=== PATIENT | female | born 1970 | race Two or more races ===

== ENCOUNTER 2018-02-21 11:44 | Emergency (ER) | payer MEDICAID ==
[~2018-02-21] VITALS: Ht 152.4 cm; Wt 107.0 kg
[~2018-02-21 11:44] MED LIST: GABA-330 PO; GLIP-192 PO; HUM7525 SQ; METF500T PO; NORE1TAB6 PO; SITA100T15 PO
[2018-02-21 12:00] VITALS: BP 141/93
[2018-02-21] MEDS ORDERED: SULF1TAB49 PO (12:36)
== END 2018-02-21 12:42 | disposition home or self-care (01) ==
LOC: ER 11:45
DX: L08.9 Local infection of the skin and subcutaneous tissue, unspecified (principal); M79.672 Pain in left foot; G89.29 Other chronic pain; E11.42 Type 2 diabetes mellitus with diabetic polyneuropathy; Z79.84 Long term (current) use of oral hypoglycemic drugs; Z79.4 Long term (current) use of insulin; Z79.899 Other long term (current) drug therapy
CPT/HCPCS: 99284

== ENCOUNTER 2018-03-02 09:00 | Outpatient (CLI) | payer MEDICAID ==
[~2018-03-02 09:00] MED LIST changes: +SULF1TAB49 PO
[2018-03-02] MEDS ORDERED: silver sulfadiazine cream 50gm TP ONE (10:00)
[2018-03-02 11:25] LABS: BASOPHILS # (AUTO) 0.1 X10'3 (0-0.2); BASOPHILS % (AUTO) 0.6 % (0-1); EOSINOPHILS # (AUTO) 0.5 X10'3 (0-0.9); EOSINOPHILS % (AUTO) 4.9 % (0-6); HEMATOCRIT 40.6 % (35.0-45.0); HEMOGLOBIN 13.6 g/dl (12.0-16.0); LYMPHOCYTES # (AUTO) 3.1 X10'3 (1.1-4.8); LYMPHOCYTES % (AUTO) 29.9 % (21-51); MEAN CORPUSCULAR HEMOGLOBIN 26.6 PG (27.0-31.0); MEAN CORPUSCULAR HGB CONC 33.5 % (33.0-36.5); MEAN CORPUSCULAR VOLUME 79.3 FL (78-98); MEAN PLATELET VOLUME 8.3 FL (7.4-10.4); MONOCYTES # (AUTO) 0.6 X10'3 (0-0.9); MONOCYTES % (AUTO) 5.5 % (2-12); NEUTROPHILS # (AUTO) 6.2 X10'3 (1.8-7.7); NEUTROPHILS % (AUTO) 59.1 % (42-75); PLATELET COUNT 322 X10'3 (140-440); RED BLOOD COUNT 5.12 X10'6 (4.20-5.60); RED CELL DISTRIBUTION WIDTH 14.8 % (11.5-14.5); WHITE BLOOD COUNT 10.4 X10'3 (4.5-11.0)
[2018-03-02 11:35] LABS: ALBUMIN 3.1 G/DL (3.4-5.0); HEMOGLOBIN A1C 11.6 % (4.5-6.2)
== END 2018-03-02 10:53 | disposition home or self-care (01) ==
LOC: WOUND CARE 09:00 → EDSTATUS 09:00 → WOUND CARE 10:53
PROVIDERS: ATTEND Surgery
DX: T25.212A Burn of second degree of left ankle, initial encounter (principal); E11.622 Type 2 diabetes mellitus with other skin ulcer; L97.321 Non-pressure chronic ulcer of left ankle limited to breakdown of skin; E11.42 Type 2 diabetes mellitus with diabetic polyneuropathy; Z79.4 Long term (current) use of insulin; Z79.84 Long term (current) use of oral hypoglycemic drugs; Z79.899 Other long term (current) drug therapy; X08.8XXA Exposure to other specified smoke, fire and flames, initial encounter; Y93.89 Activity, other specified; Y92.89 Other specified places as the place of occurrence of the external cause; Y99.8 Other external cause status
CPT/HCPCS: 36415; 36416; 82040; 82948; 83036; 85025; 85651; 99215; A6212; A6223

== ENCOUNTER 2018-03-10 09:36 | Day surgery (SDC) | payer MEDICAID ==
[~2018-03-10 09:36] MED LIST changes: -SULF1TAB49 PO
[2018-03-10] MEDS ORDERED: LIDOcaine 2% 5ml jelly ONE (10:04)
== END 2018-03-10 12:30 | disposition home or self-care (01) ==
LOC: WOUND CARE 09:36
PROVIDERS: ATTEND Surgery
DX: T25.212D Burn of second degree of left ankle, subsequent encounter (principal); E11.622 Type 2 diabetes mellitus with other skin ulcer; L97.321 Non-pressure chronic ulcer of left ankle limited to breakdown of skin; E11.42 Type 2 diabetes mellitus with diabetic polyneuropathy; Z79.4 Long term (current) use of insulin; Z79.84 Long term (current) use of oral hypoglycemic drugs; Z79.899 Other long term (current) drug therapy; X08.8XXD Exposure to other specified smoke, fire and flames, subsequent encounter
CPT/HCPCS: 36416; 82948; 93922; 93970; 97597; A6021; A6206; A6441

== ENCOUNTER 2018-03-15 09:25 | Day surgery (SDC) | payer MEDICAID ==
[2018-03-15] MEDS ORDERED: LIDOcaine 2% 5ml jelly ONE (09:51)
== END 2018-03-15 10:34 | disposition home or self-care (01) ==
LOC: WOUND CARE 09:25
PROVIDERS: ATTEND Surgery
DX: T25.212D Burn of second degree of left ankle, subsequent encounter (principal); E11.622 Type 2 diabetes mellitus with other skin ulcer; L97.321 Non-pressure chronic ulcer of left ankle limited to breakdown of skin; E11.42 Type 2 diabetes mellitus with diabetic polyneuropathy; E11.65 Type 2 diabetes mellitus with hyperglycemia; Z79.4 Long term (current) use of insulin; Z79.84 Long term (current) use of oral hypoglycemic drugs; Z79.899 Other long term (current) drug therapy; X08.8XXD Exposure to other specified smoke, fire and flames, subsequent encounter
CPT/HCPCS: 36416; 82948; 97597; A6021; A6206; A6212

== ENCOUNTER 2018-03-22 08:59 | Day surgery (SDC) | payer MEDICAID ==
[2018-03-22] MEDS ORDERED: LIDOcaine 2% 5ml jelly ONE (09:10)
[2018-04-11] MEDS ORDERED: CLIN45GE TOP (10:45)
[2018-04-11] MEDS ORDERED: DOXY100C2 PO (10:45)
== END 2018-03-22 09:49 | disposition home or self-care (01) ==
LOC: WOUND CARE 08:59
PROVIDERS: ATTEND Surgery
DX: T25.212D Burn of second degree of left ankle, subsequent encounter (principal); T31.0 Burns involving less than 10% of body surface; E11.622 Type 2 diabetes mellitus with other skin ulcer; L97.321 Non-pressure chronic ulcer of left ankle limited to breakdown of skin; E11.42 Type 2 diabetes mellitus with diabetic polyneuropathy; E11.65 Type 2 diabetes mellitus with hyperglycemia; Z79.4 Long term (current) use of insulin; Z79.84 Long term (current) use of oral hypoglycemic drugs; Z79.899 Other long term (current) drug therapy; X08.8XXD Exposure to other specified smoke, fire and flames, subsequent encounter
CPT/HCPCS: 97597; A6021; A6206

== ENCOUNTER 2018-03-29 09:27 | Day surgery (SDC) | payer MEDICAID ==
[2018-03-29] MEDS ORDERED: LIDOcaine 2% 5ml jelly ONE (09:37)
== END 2018-03-29 10:33 | disposition home or self-care (01) ==
LOC: WOUND CARE 09:27
PROVIDERS: ATTEND Surgery
DX: T25.212D Burn of second degree of left ankle, subsequent encounter (principal); E11.622 Type 2 diabetes mellitus with other skin ulcer; L97.321 Non-pressure chronic ulcer of left ankle limited to breakdown of skin; E11.42 Type 2 diabetes mellitus with diabetic polyneuropathy; E11.65 Type 2 diabetes mellitus with hyperglycemia; Z79.4 Long term (current) use of insulin; Z79.84 Long term (current) use of oral hypoglycemic drugs; Z79.899 Other long term (current) drug therapy; X08.8XXD Exposure to other specified smoke, fire and flames, subsequent encounter
CPT/HCPCS: 36416; 82948; 97597; A6021; A6206; A6441

== ENCOUNTER 2018-04-01 11:40 | Emergency (ER) | payer MEDICAID ==
[~2018-04-01] VITALS: Ht 152.4 cm; Wt 109.6 kg
[2018-04-01 12:13] VITALS: BP 132/95
== END 2018-04-01 13:03 | disposition home or self-care (01) ==
LOC: ER 11:40
DX: J06.9 Acute upper respiratory infection, unspecified (principal); H61.23 Impacted cerumen, bilateral; H92.02 Otalgia, left ear; E11.42 Type 2 diabetes mellitus with diabetic polyneuropathy; G89.29 Other chronic pain; Z79.84 Long term (current) use of oral hypoglycemic drugs; Z79.4 Long term (current) use of insulin; Z79.899 Other long term (current) drug therapy
CPT/HCPCS: 99281

== ENCOUNTER 2018-04-08 09:22 | Outpatient (CLI) | payer MEDICAID ==
[2018-04-08] MEDS ORDERED: SULF1TAB49 PO (12:42)
[2018-04-11] MEDS ORDERED: DOXY100C2 PO (10:45)
[2018-04-11] MEDS ORDERED: CLIN45GE TOP (10:45)
== END 2018-04-08 09:51 | disposition home or self-care (01) ==
LOC: WOUND CARE 09:22 → EDSTATUS 09:30 → WOUND CARE 09:51
PROVIDERS: ATTEND Surgery
DX: E11.622 Type 2 diabetes mellitus with other skin ulcer (principal); L97.321 Non-pressure chronic ulcer of left ankle limited to breakdown of skin; E11.42 Type 2 diabetes mellitus with diabetic polyneuropathy; E11.65 Type 2 diabetes mellitus with hyperglycemia; Z79.4 Long term (current) use of insulin; Z79.84 Long term (current) use of oral hypoglycemic drugs; Z79.899 Other long term (current) drug therapy
CPT/HCPCS: 36416; 82948; 99211; A6021; A6206; A6212

== ENCOUNTER 2018-04-15 09:19 | Day surgery (SDC) | payer MEDICAID ==
[~2018-04-15 09:19] MED LIST changes: +CLIN45GE TOP; +DOXY100C2 PO; +SULF1TAB49 PO
[2018-04-15] MEDS ORDERED: LIDOcaine 2% 5ml jelly ONE (09:51)
== END 2018-04-15 10:55 | disposition home or self-care (01) ==
LOC: WOUND CARE 09:19
PROVIDERS: ATTEND Surgery
DX: E11.622 Type 2 diabetes mellitus with other skin ulcer (principal); L97.321 Non-pressure chronic ulcer of left ankle limited to breakdown of skin; I83.023 Varicose veins of left lower extremity with ulcer of ankle; T25.212D Burn of second degree of left ankle, subsequent encounter; E11.42 Type 2 diabetes mellitus with diabetic polyneuropathy; E11.65 Type 2 diabetes mellitus with hyperglycemia; I10 Essential (primary) hypertension; L73.2 Hidradenitis suppurativa; Z79.4 Long term (current) use of insulin; Z79.84 Long term (current) use of oral hypoglycemic drugs; Z79.899 Other long term (current) drug therapy; X08.8XXD Exposure to other specified smoke, fire and flames, subsequent encounter
CPT/HCPCS: 15271; 36416; 82948; A6209; A6222; A6446; Q4131; A6250

== ENCOUNTER 2018-04-22 09:21 | Day surgery (SDC) | payer MEDICAID ==
[~2018-04-22 09:21] MED LIST changes: -SULF1TAB49 PO
[2018-04-22] MEDS ORDERED: LIDOcaine 2% 5ml jelly ONE (09:55)
[2018-04-22] MEDS ORDERED: hydrocortisone 1% cream 28gm TP ONE (11:04)
== END 2018-04-22 11:07 | disposition home or self-care (01) ==
LOC: WOUND CARE 09:21
PROVIDERS: ATTEND Surgery
DX: E11.622 Type 2 diabetes mellitus with other skin ulcer (principal); L97.321 Non-pressure chronic ulcer of left ankle limited to breakdown of skin; I83.023 Varicose veins of left lower extremity with ulcer of ankle; T25.212D Burn of second degree of left ankle, subsequent encounter; E11.42 Type 2 diabetes mellitus with diabetic polyneuropathy; E11.65 Type 2 diabetes mellitus with hyperglycemia; I10 Essential (primary) hypertension; L73.2 Hidradenitis suppurativa; Z79.4 Long term (current) use of insulin; Z79.84 Long term (current) use of oral hypoglycemic drugs; Z79.899 Other long term (current) drug therapy; X08.8XXD Exposure to other specified smoke, fire and flames, subsequent encounter
CPT/HCPCS: 36416; 82948; 97597; A6021; A6206; A6441

== ENCOUNTER 2018-05-11 09:01 | Day surgery (SDC) | payer MEDICAID ==
[~2018-05-11 09:01] MED LIST changes: -DOXY100C2 PO
[2018-05-11] MEDS: LIDOcaine 2% 5ml jelly ONE (10:42)
== END 2018-05-11 11:34 | disposition home or self-care (01) ==
LOC: WOUND CARE 09:01
PROVIDERS: ATTEND Surgery
DX: E11.622 Type 2 diabetes mellitus with other skin ulcer (principal); L97.321 Non-pressure chronic ulcer of left ankle limited to breakdown of skin; I83.023 Varicose veins of left lower extremity with ulcer of ankle; T25.212D Burn of second degree of left ankle, subsequent encounter; E11.42 Type 2 diabetes mellitus with diabetic polyneuropathy; E11.65 Type 2 diabetes mellitus with hyperglycemia; I10 Essential (primary) hypertension; L73.2 Hidradenitis suppurativa; Z79.4 Long term (current) use of insulin; Z79.84 Long term (current) use of oral hypoglycemic drugs; Z79.899 Other long term (current) drug therapy; X08.8XXD Exposure to other specified smoke, fire and flames, subsequent encounter
CPT/HCPCS: 11042; 36416; 82948; A6021; A6206; A6441

== ENCOUNTER 2018-05-20 09:20 | Outpatient (CLI) | payer MEDICAID ==
[2018-05-20] MEDS ORDERED: COLL30OI TP (15:22)
== END 2018-05-20 12:30 | disposition home or self-care (01) ==
LOC: WOUND CARE 09:20 → EDSTATUS 09:30 → WOUND CARE 12:30
PROVIDERS: ATTEND Surgery
DX: E11.622 Type 2 diabetes mellitus with other skin ulcer (principal); L97.321 Non-pressure chronic ulcer of left ankle limited to breakdown of skin; I83.023 Varicose veins of left lower extremity with ulcer of ankle; T25.212D Burn of second degree of left ankle, subsequent encounter; E11.42 Type 2 diabetes mellitus with diabetic polyneuropathy; E11.65 Type 2 diabetes mellitus with hyperglycemia; I10 Essential (primary) hypertension; L73.2 Hidradenitis suppurativa; Z79.4 Long term (current) use of insulin; Z79.84 Long term (current) use of oral hypoglycemic drugs; Z79.899 Other long term (current) drug therapy; X08.8XXD Exposure to other specified smoke, fire and flames, subsequent encounter
CPT/HCPCS: 36416; 82948; 99215; A6212; A6222; A6446

== ENCOUNTER 2018-10-05 20:11 | Emergency (ER) | payer MEDICAID ==
[~2018-10-05] VITALS: Ht 152.4 cm; Wt 109.0 kg
[~2018-10-05 20:11] MED LIST changes: +COLL30OI TP
[2018-10-05 20:23] VITALS: BP 189/98
[2018-10-05] MEDS ORDERED: LANTUS SQ (22:21)
[2018-10-05] MEDS ORDERED: SYRI-641 SQ (22:21)
== END 2018-10-05 22:36 | disposition home or self-care (01) ==
LOC: ER 20:12
DX: T38.3X5A Adverse effect of insulin and oral hypoglycemic [antidiabetic] drugs, initial encounter (principal); I10 Essential (primary) hypertension; E11.42 Type 2 diabetes mellitus with diabetic polyneuropathy; G89.29 Other chronic pain; Z86.14 Personal history of Methicillin resistant Staphylococcus aureus infection; Z79.2 Long term (current) use of antibiotics; Z79.4 Long term (current) use of insulin; Z79.899 Other long term (current) drug therapy; Y92.89 Other specified places as the place of occurrence of the external cause
CPT/HCPCS: 82948; 99283

== ENCOUNTER 2018-11-19 18:18 | Emergency (ER) | payer MEDICAID ==
[~2018-11-19] VITALS: Ht 152.4 cm; Wt 101.0 kg
[~2018-11-19 18:18] MED LIST changes: +SYRI-641 SQ
[2018-11-19 18:21] VITALS: BP 149/92
== END 2018-11-19 20:09 | disposition home or self-care (01) ==
LOC: ER 18:18
DX: R21 Rash and other nonspecific skin eruption (principal); L29.9 Pruritus, unspecified; E66.9 Obesity, unspecified; I10 Essential (primary) hypertension; E11.40 Type 2 diabetes mellitus with diabetic neuropathy, unspecified; G89.29 Other chronic pain; Z79.4 Long term (current) use of insulin; Z88.4 Allergy status to anesthetic agent; Z79.899 Other long term (current) drug therapy
CPT/HCPCS: 99281

== ENCOUNTER 2018-12-31 10:14 | Emergency (ER) | payer MEDICAID ==
[~2018-12-31] VITALS: Ht 157.5 cm; Wt 122.0 kg
[2018-12-31] MEDS ORDERED: CEPH-572 PO (10:35)
[2018-12-31] MEDS ORDERED: TRIA15CR61 TP (11:00)
[2018-12-31 11:07] VITALS: BP 177/107
== END 2018-12-31 11:09 | disposition home or self-care (01) ==
LOC: ER 10:15
DX: L08.9 Local infection of the skin and subcutaneous tissue, unspecified (principal); L40.8 Other psoriasis; I87.2 Venous insufficiency (chronic) (peripheral); R60.0 Localized edema; G89.29 Other chronic pain; I10 Essential (primary) hypertension; E11.42 Type 2 diabetes mellitus with diabetic polyneuropathy; Z86.14 Personal history of Methicillin resistant Staphylococcus aureus infection; Z79.4 Long term (current) use of insulin; Z79.899 Other long term (current) drug therapy; Z79.84 Long term (current) use of oral hypoglycemic drugs
CPT/HCPCS: 87070; 87077; 87186; 99283

== ENCOUNTER 2019-05-28 21:02 | Emergency (ER) | payer MEDICAID ==
[~2019-05-28] VITALS: Ht 152.4 cm; Wt 106.9 kg
[~2019-05-28 21:02] MED LIST changes: +NORE-126 PO; -NORE1TAB6 PO
[2019-05-28] MEDS ORDERED: GABA-534 PO (21:48)
[2019-05-28 21:53] VITALS: BP 163/87
--- NOTE | 2019-05-28 22:09 | NUR ---
[facility] NEED [facility] THEN HOME T[facility]. PT REPORTS SHE HAS A TRANSPORT SERVICE, [facility] , THAT WILL TAKE HER BOTH PLACES. WHEN I CALLED THEY REPORTED SHE DOES NOT HAVE COVERAGE FOR AN ER DC TRANSPORT. [facility] CALLED AND REQUESTED THAT PT BE TAKEN BOTH PLACES. I UPDATED PT THAT THIS IS NOT A USUAL COURT[employer] CAB RIDE AND TO PLEASE CONSIDER HOW SHE WILL BE TRANSPORTED IN FUTURE ER VISITS. PT VERY GRATEFUL FOR THE RIDE.
== END 2019-05-28 22:28 | disposition home or self-care (01) ==
LOC: ER 21:03
DX: G62.9 Polyneuropathy, unspecified (principal); I10 Essential (primary) hypertension; E11.9 Type 2 diabetes mellitus without complications; G89.29 Other chronic pain; F41.9 Anxiety disorder, unspecified; Z76.0 Encounter for issue of repeat prescription; Z86.14 Personal history of Methicillin resistant Staphylococcus aureus infection; Z79.84 Long term (current) use of oral hypoglycemic drugs; Z79.4 Long term (current) use of insulin; Z79.899 Other long term (current) drug therapy
CPT/HCPCS: 99283

== ENCOUNTER 2019-07-05 07:57 | Emergency (ER) | payer MEDICAID ==
[~2019-07-05] VITALS: Ht 152.4 cm; Wt 118.2 kg
[~2019-07-05 07:57] MED LIST changes: +GABA-534 PO
[2019-07-05] MEDS ORDERED: HYDROcodone/acetaminophen 5mg/325mg tablet PO ONE (08:10)
[2019-07-05] MEDS ORDERED: furosemide 10 MG/1 ML 10ml inj IV ONE (08:10)
[2019-07-05] MEDS ORDERED: piperacillin/tazo 3.375gm/50ml 50 ML IV ONE (08:10)
[2019-07-05 08:44] LABS: BASOPHILS # (AUTO) 0.1 X10'3 (0-0.2); EOSINOPHILS # (AUTO) 0.6 X10'3 (0-0.9); EOSINOPHILS % (AUTO) 6.2 % (0-6); HEMATOCRIT 40.9 % (35.0-45.0); HEMOGLOBIN 13.6 g/dl (12.0-16.0); LYMPHOCYTES # (AUTO) 2.7 X10'3 (1.1-4.8); LYMPHOCYTES % (AUTO) 29.8 % (21-51); MEAN CORPUSCULAR HGB CONC 33.2 g/dL (33.0-36.5); MEAN CORPUSCULAR VOLUME 81.5 FL (78-98); MEAN PLATELET VOLUME 7.9 FL (7.4-10.4); MONOCYTES # (AUTO) 0.7 X10'3 (0-0.9); MONOCYTES % (AUTO) 7.5 % (2-12); NEUTROPHILS # (AUTO) 5.1 X10'3 (1.8-7.7); NEUTROPHILS % (AUTO) 55.5 % (42-75); PLATELET COUNT 353 X10'3 (140-440); RED BLOOD COUNT 5.02 X10'6 (4.20-5.60); RED CELL DISTRIBUTION WIDTH 14.8 % (11.5-14.5); WHITE BLOOD COUNT 9.1 X10'3 (4.5-11.0)
[2019-07-05 09:03] VITALS: BP 154/96
[2019-07-05 09:14] LABS: ALANINE AMINOTRANSFERASE 20 U/L (12-78); ALBUMIN 3.2 G/DL (3.4-5.0); ALBUMIN/GLOBULIN RATIO 0.7 (1.1-1.5); ALKALINE PHOSPHATASE 132 IU/L (46-116); ANION GAP 8 (8-16); ASPARTATE AMINO TRANSFERASE 10 U/L (10-37); BILIRUBIN,TOTAL 0.3 MG/DL (0.1-1.0); BLOOD UREA NITROGEN 14 MG/DL (7-18); BUN/CREATININE RATIO 19.4 (6.6-38.0); CALCIUM 8.7 MG/DL (8.5-10.1); CHLORIDE 103 MMOL/L (99-107); CREATININE 0.72 MG/DL (0.40-0.90); GLUCOSE 212 MG/DL (70-104); POTASSIUM 3.7 MMOL/L (3.5-5.1); SODIUM 139 MMOL/L (135-145); TOTAL CARBON DIOXIDE 27.7 MMOL/L (24-32); TOTAL PROTEIN 7.7 G/DL (6.4-8.2); eGFR 86 ML/MIN
[2019-07-05] MEDS ORDERED: DOXY100C43 PO (09:19)
[2019-07-05] MEDS ORDERED: CEPH250T PO (09:19)
== END 2019-07-05 11:01 | disposition home or self-care (01) ==
LOC: ER 07:57
DX: L03.116 Cellulitis of left lower limb (principal); E11.65 Type 2 diabetes mellitus with hyperglycemia; I10 Essential (primary) hypertension; G89.29 Other chronic pain; E11.42 Type 2 diabetes mellitus with diabetic polyneuropathy; Z86.14 Personal history of Methicillin resistant Staphylococcus aureus infection; Z88.4 Allergy status to anesthetic agent; Z79.899 Other long term (current) drug therapy; Z79.4 Long term (current) use of insulin
CPT/HCPCS: 36415; 80053; 82948; 83605; 84145; 85025; 85610; 87040; 93005; 96365; 96366; 96375; 99284; J1940; J2543

== ENCOUNTER 2019-10-31 15:32 | Inpatient (IN) | payer MEDICAID ==
[~2019-10-31] VITALS: Ht 152.4 cm; Wt 118.6 kg
[2019-10-31 16:43] LABS: BASOPHILS # (AUTO) 0.2 X10'3 (0-0.2); BASOPHILS % (AUTO) 1.1 % (0-1); EOSINOPHILS # (AUTO) 0.7 X10'3 (0-0.9); EOSINOPHILS % (AUTO) 5.4 % (0-6); HEMATOCRIT 38.9 % (35.0-45.0); HEMOGLOBIN 13.1 g/dl (12.0-16.0); LYMPHOCYTES # (AUTO) 3.8 X10'3 (1.1-4.8); LYMPHOCYTES % (AUTO) 29.1 % (21-51); MEAN CORPUSCULAR HEMOGLOBIN 26.5 PG (27.0-31.0); MEAN CORPUSCULAR HGB CONC 33.6 g/dL (33.0-36.5); MEAN PLATELET VOLUME 7.8 FL (7.4-10.4); MONOCYTES # (AUTO) 0.7 X10'3 (0-0.9); NEUTROPHILS # (AUTO) 7.8 X10'3 (1.8-7.7); NEUTROPHILS % (AUTO) 59.4 % (42-75); PLATELET COUNT 408 X10'3 (140-440); RED BLOOD COUNT 4.92 X10'6 (4.20-5.60); WHITE BLOOD COUNT 13.2 X10'3 (4.5-11.0)
[2019-10-31 17:00] LABS: PARTIAL THROMBOPLASTIN TIME 27 SECONDS (22-32)
[2019-10-31 17:03] LABS: COLOR,URINE YELLOW (Yellow); GLUCOSE, URINE >=1000 mg/dl (Neg); KETONES,URINE TRACE mg/dl (Neg); LEUKOCYTE ESTERASE ,URINE SMALL (Neg); NITRITES, URINE NEGATIVE (Neg); OCCULT BLOOD,URINE NEGATIVE (Neg); PROTEIN,URINE NEGATIVE (Neg)
[2019-10-31 17:08] LABS: ALANINE AMINOTRANSFERASE 27 U/L (12-78); ALBUMIN 3.5 G/DL (3.4-5.0); ALBUMIN/GLOBULIN RATIO 0.8 (1.1-1.5); ALKALINE PHOSPHATASE 128 IU/L (46-116); ANION GAP 11 (8-16); ASPARTATE AMINO TRANSFERASE 12 U/L (10-37); BILIRUBIN,TOTAL 0.1 MG/DL (0.1-1.0); BLOOD UREA NITROGEN 19 MG/DL (7-18); CALCIUM 9.4 MG/DL (8.5-10.1); CHLORIDE 100 MMOL/L (99-107); CREATININE 0.73 MG/DL (0.40-0.90); GLUCOSE 177 MG/DL (70-104); SODIUM 136 MMOL/L (135-145); TOTAL CARBON DIOXIDE 25.2 MMOL/L (24-32); eGFR 85 ML/MIN
[2019-10-31 17:11] LABS: CLARITY,URINE SLIGHTLY CLOUDY (Clear); UA COLLECTION TYPE CLN CATCH MIDSTREAM
[2019-10-31 17:18] LABS: BACTERIA,URINE FEW /HPF (Neg); RBC,URINE NONE SEEN /HPF (0-2); SQUAMOUS EPITHELIAL CELL,UR MODERATE /LPF (FEW)
[2019-10-31 17:19] LABS: WBC CLUMPS,URINE FEW /HPF (NEGATIVE)
[2019-10-31] MEDS ORDERED: vancomycin/NS 1 GM ADD-VANTAGE 250 ML IV ONE (19:10)
[2019-10-31] MEDS ORDERED: ondansetron/PF 4mg/2ml inj IV PRN (19:50)
[2019-10-31] MEDS ORDERED: mag hydrox/Alum hydrox/simeth 30ml oral suspension PO PRN (19:50)
[2019-10-31] MEDS ORDERED: acetaminophen 325mg tablet PO PRN (19:50)
[2019-10-31] MEDS ORDERED: magnesium hydroxide 30ml (MOM) UD suspension PO PRN (19:50)
[2019-10-31] MEDS ORDERED: dextrose 50%-water 50ml dispensing syringe IV PRN ×2 (19:55)
[2019-10-31] MEDS ORDERED: dextrose ORAL solution 15 GM/59 ML bottle PO PRN ×2 (19:55)
[2019-10-31] MEDS ORDERED: MESSAGE TO PHARMACY PO ONE (19:55)
[2019-10-31] MEDS ORDERED: glucagon, human recombinant 1mg kit SUBCUT PRN (19:55)
[2019-10-31] MEDS ORDERED: INSU100C4 SQ (19:58)
[2019-10-31] MEDS ORDERED: LANTUS SQ (19:58)
[2019-10-31] MEDS ORDERED: diphenhydrAMINE 25mg capsule PO PRN (20:05)
[2019-10-31 20:08] LABS: HEMOGLOBIN A1C 11.3 % (4.5-6.2)
[2019-10-31] MEDS: heparin, porcine 5000 units/ml vial SQ SCH (20:31)
[2019-10-31] MEDS: insulin glargine (Lantus) pen - multi-dose SQ SCH (21:00)
[2019-10-31 21:15] VITALS: BP 116/58
[2019-10-31 21:30] VITALS: BP 116/58
[2019-10-31] MEDS: gabapentin 400mg capsule PO SCH (21:30)
[2019-10-31] MEDS ORDERED: TRIA15CR61 TP (21:37)
[2019-11-01] VITALS: BP 132/88
[2019-11-01 05:42] LABS: BASOPHILS # (AUTO) 0.1 X10'3 (0-0.2); BASOPHILS % (AUTO) 0.8 % (0-1); EOSINOPHILS # (AUTO) 0.6 X10'3 (0-0.9); HEMATOCRIT 35.6 % (35.0-45.0); LYMPHOCYTES # (AUTO) 3.5 X10'3 (1.1-4.8); LYMPHOCYTES % (AUTO) 34.3 % (21-51); MEAN CORPUSCULAR HEMOGLOBIN 27.1 PG (27.0-31.0); MEAN CORPUSCULAR HGB CONC 33.6 g/dL (33.0-36.5); MEAN CORPUSCULAR VOLUME 80.7 FL (78-98); MEAN PLATELET VOLUME 8.1 FL (7.4-10.4); MONOCYTES # (AUTO) 0.6 X10'3 (0-0.9); MONOCYTES % (AUTO) 6.3 % (2-12); NEUTROPHILS # (AUTO) 5.4 X10'3 (1.8-7.7); NEUTROPHILS % (AUTO) 52.6 % (42-75); PLATELET COUNT 331 X10'3 (140-440); RED BLOOD COUNT 4.42 X10'6 (4.20-5.60); RED CELL DISTRIBUTION WIDTH 15.4 % (11.5-14.5); WHITE BLOOD COUNT 10.3 X10'3 (4.5-11.0)
[2019-11-01 05:54] LABS: ALANINE AMINOTRANSFERASE 22 U/L (12-78); ALBUMIN 2.9 G/DL (3.4-5.0); ALBUMIN/GLOBULIN RATIO 0.7 (1.1-1.5); ALKALINE PHOSPHATASE 105 IU/L (46-116); ANION GAP 8 (8-16); ASPARTATE AMINO TRANSFERASE 16 U/L (10-37); BILIRUBIN,TOTAL 0.3 MG/DL (0.1-1.0); BLOOD UREA NITROGEN 16 MG/DL (7-18); BUN/CREATININE RATIO 23.5 (6.6-38.0); CALCIUM 8.9 MG/DL (8.5-10.1); CHLORIDE 103 MMOL/L (99-107); CREATININE 0.68 MG/DL (0.40-0.90); GLUCOSE 284 MG/DL (70-104); POTASSIUM 4.1 MMOL/L (3.5-5.1); SODIUM 137 MMOL/L (135-145); TOTAL CARBON DIOXIDE 25.6 MMOL/L (24-32); TOTAL PROTEIN 6.8 G/DL (6.4-8.2); eGFR > 90 ML/MIN
--- NOTE | 2019-11-01 06:38 | NUR ---
Problems reprioritized. Patient report given, questions answered & plan of care reviewed with [place]. Addendum: 11/01/19 at 0638 by Akshat Sofia RN Amended: Links added.
[2019-11-01 08:00] VITALS: BP 122/78
[2019-11-01] MEDS: gabapentin 400mg capsule PO SCH ×3 (08:24→20:59)
[2019-11-01] MEDS: triamcinolone acetonide 0.5% cream 15gm TP SCH ×3 (08:24→21:00)
[2019-11-01] MEDS: heparin, porcine 5000 units/ml vial SQ SCH ×2 (08:24→20:16)
[2019-11-01] MEDS: insulin Lispro (HumaLOG) vial - multi-dose SQ SCH ×4 (08:34→21:08)
[2019-11-01] MEDS ORDERED: magnesium Cl slow-release 64mg tablet PO PRN (09:25)
[2019-11-01] MEDS: K and/or MAG REPLACEMENT MC SCH ×2 (09:25→20:00)
[2019-11-01] MEDS ORDERED: potassium Cl 20 mEq SR tablet PO PRN ×2 (09:25)
[2019-11-01] MEDS ORDERED: potassium CL 10mEq/100ml bag 100 ML IV PRN (09:25)
[2019-11-01] MEDS ORDERED: magnesium 4gm in 100ml NS 100 ML IV PRN (09:25)
--- NOTE | 2019-11-01 09:52 | NUR ---
Patient in room NANCY 360. I have received report from Primitivo WARE and had the opportunity to ask questions and assume patient care.
[2019-11-01 11:00] VITALS: BP 112/65
[2019-11-01] MEDS: cefepime 1GM in D5W 50mL 50 ML IV SCH ×3 (12:18→23:31)
[2019-11-01] MEDS ORDERED: gadobutrol 10mmol/10ml inj. IV ONE (13:47)
--- NOTE | 2019-11-01 16:09 | NUR ---
1600 dose of Cefipime too soon from starting dose. Per phone call Pharmacy, non-admin 1600 dose.
--- NOTE | 2019-11-01 18:12 | NUR ---
Pt admit with cellulitis with hx T2DM, current A1c is 11.3. Pt seen at bedside. Pt reports she lives in an independent living facility where she has no kitchen access and is only able to eat the three meals provided each day which pt reports are highly processed and prepackaged foods. Pt reports her living facility does not do meal accommodations however recently the quality of meals have improved to be slightly more healthy for breakfast and dinner, however lunch remains highly processed. Pt states she is supposed to see her MD q three months however is unsure of how frequently she actually sees her MD. Pt states she checks her BG levels a couple of times a day with resulting numbers in the 70s, 90s, or even greater than 700. Pt states she takes her meds per rx which is Metformin, Lantus, and Humalog and reports having to take high doses of Humalog d/t high blood sugar levels. RD provided pt with written and verbal protein and DM education with referral to outpatient DM class. RD encouraged pt to increase her level of activity for better BG level management. Pt verbalizes understanding and states she is working with a social work faculty member in hopes of being able to find a better living situation where she will be able to have more appropriate meals to assist with DM management. Pt currently on a CHO controlled diet documented with 100% PO intake. Pt agrees to double protein for satiety, d/w dietary. Pt denies food allergies, difficulty chewing/swallowing, or constipation/diarrhea. LB 10/31. Pt provided with [facility] contact information. Will continue to follow. Addendum: 11/01/19 at [address] Amended: Links added.
--- NOTE | 2019-11-01 18:33 | NUR ---
Patient in room NANCY 360. I have received report from Radha RN and JEANIE Ruano and had the opportunity to ask questions and assume patient care.
--- NOTE | 2019-11-01 18:42 | NUR ---
Problems reprioritized. Patient report given, questions answered & plan of care reviewed with Jacinta WARE.
[2019-11-01 20:00] VITALS: BP 109/64
[2019-11-01] MEDS: lactobacillus rhamnosus 10,000 MMU CELLS/CAPSULE PO SCH (20:17)
[2019-11-01] MEDS: mineral oil/petrolatum, white cream 113gm jar TP SCH (20:26)
[2019-11-01] MEDS: insulin glargine (Lantus) pen - multi-dose SQ SCH (21:08)
[2019-11-02] VITALS: BP 126/87
[2019-11-02] MEDS ORDERED: VANCOMYCIN LEVEL IV ONE (03:30)
[2019-11-02 03:50] LABS: BASOPHILS # (AUTO) 0.1 X10'3 (0-0.2); BASOPHILS % (AUTO) 1.1 % (0-1); EOSINOPHILS # (AUTO) 0.7 X10'3 (0-0.9); EOSINOPHILS % (AUTO) 7.9 % (0-6); LYMPHOCYTES % (AUTO) 34.5 % (21-51); MEAN CORPUSCULAR HEMOGLOBIN 26.7 PG (27.0-31.0); MEAN CORPUSCULAR HGB CONC 33.3 g/dL (33.0-36.5); MEAN CORPUSCULAR VOLUME 80.2 FL (78-98); MEAN PLATELET VOLUME 7.7 FL (7.4-10.4); MONOCYTES # (AUTO) 0.5 X10'3 (0-0.9); MONOCYTES % (AUTO) 6.1 % (2-12); NEUTROPHILS # (AUTO) 4.4 X10'3 (1.8-7.7); NEUTROPHILS % (AUTO) 50.4 % (42-75); PLATELET COUNT 345 X10'3 (140-440); RED BLOOD COUNT 4.86 X10'6 (4.20-5.60); RED CELL DISTRIBUTION WIDTH 15.5 % (11.5-14.5); WHITE BLOOD COUNT 8.7 X10'3 (4.5-11.0)
[2019-11-02 04:01] LABS: ALANINE AMINOTRANSFERASE 22 U/L (12-78); ALBUMIN 3.1 G/DL (3.4-5.0); ALBUMIN/GLOBULIN RATIO 0.7 (1.1-1.5); ALKALINE PHOSPHATASE 115 IU/L (46-116); ANION GAP 7 (8-16); ASPARTATE AMINO TRANSFERASE 11 U/L (10-37); BILIRUBIN,TOTAL 0.3 MG/DL (0.1-1.0); BLOOD UREA NITROGEN 17 MG/DL (7-18); BUN/CREATININE RATIO 23.9 (6.6-38.0); CHLORIDE 103 MMOL/L (99-107); CREATININE 0.71 MG/DL (0.40-0.90); GLUCOSE 261 MG/DL (70-104); POTASSIUM 4.1 MMOL/L (3.5-5.1); SODIUM 139 MMOL/L (135-145); TOTAL CARBON DIOXIDE 28.7 MMOL/L (24-32); TOTAL PROTEIN 7.4 G/DL (6.4-8.2); eGFR 88 ML/MIN
[2019-11-02 04:03] LABS: MAGNESIUM 2.1 MG/DL (1.5-2.4); PHOSPHORUS 4.2 MG/DL (2.3-4.5); VANCOMYCIN,TROUGH 19.1 UG/ML (6.0-14.0)
--- NOTE | 2019-11-02 06:13 | NUR ---
Problems reprioritized. Patient report given, questions answered & plan of care reviewed with JEANIE Garcia and JEANIE Ruano.
--- NOTE | 2019-11-02 06:18 | NUR ---
Patient in room NANCY 360. I have received report from Jacinta WARE and had the opportunity to ask questions and assume patient care.
[2019-11-02] MEDS: triamcinolone acetonide 0.5% cream 15gm TP SCH (07:33)
[2019-11-02] MEDS: cefepime 1GM in D5W 50mL 50 ML IV SCH (07:33)
[2019-11-02] MEDS: gabapentin 400mg capsule PO SCH ×2 (07:34→12:55)
[2019-11-02] MEDS: mineral oil/petrolatum, white cream 113gm jar TP SCH (07:34)
[2019-11-02] MEDS: heparin, porcine 5000 units/ml vial SQ SCH (07:34)
[2019-11-02] MEDS: lactobacillus rhamnosus 10,000 MMU CELLS/CAPSULE PO SCH (07:34)
[2019-11-02] MEDS: insulin Lispro (HumaLOG) vial - multi-dose SQ SCH ×2 (07:58→12:55)
[2019-11-02 08:00] VITALS: BP 114/69
[2019-11-02] MEDS: K and/or MAG REPLACEMENT MC SCH (08:00)
[2019-11-02] MEDS ORDERED: LINE600T12 PO (10:25)
[2019-11-02] MEDS ORDERED: WOOL454C TP (10:25)
[2019-11-02] MEDS ORDERED: LACT1CAP26 PO (10:25)
[2019-11-02 11:00] VITALS: BP 112/68
--- NOTE | 2019-11-02 13:07 | NUR ---
Pt d/c'd per nursing. D/C instructions reviewed. Pt instructed to f/u with PCP . Home meds stored in Pharmacy returned to pt. PIV d/c'd cannula intact. All personal belongings home with pt. Pt home pending cab ride.
--- NOTE | 2019-11-02 18:51 | NUR ---
1325 Pt d/c'd home. Escorted to front lobby by PCT via w/c. Home via cab with all personal belongings.
== END 2019-11-02 13:40 | disposition home or self-care (01) | DRG 383 ==
LOC: ER 15:33 → ED HOLD 19:48 → SUR 3N 21:17
PROVIDERS: ADMIT Internal Medicine; ATTEND Family Medicine
PROC: BQ3FYZZ Magnetic Resonance Imaging (MRI) of Left Lower Leg using Other Contrast (ICD-10-PCS; principal; 2019-11-01)
DX: L03.116 Cellulitis of left lower limb (principal); E11.42 Type 2 diabetes mellitus with diabetic polyneuropathy; E11.65 Type 2 diabetes mellitus with hyperglycemia; I10 Essential (primary) hypertension; F41.9 Anxiety disorder, unspecified; G89.29 Other chronic pain; N39.0 Urinary tract infection, site not specified; Z79.899 Other long term (current) drug therapy; Z99.3 Dependence on wheelchair; Z88.4 Allergy status to anesthetic agent
CPT/HCPCS: 36415; 71045; 73723; 80053; 80202; 81001; 82948; 83036; 83605; 83735; 84100; 84145; 85025; 85610; 85730; 87040; 87081; 87088; 99285; A9585; G0378; J0692; J1644; J1815; J3370

== ENCOUNTER 2020-01-17 13:29 | Emergency (ER) | payer MEDICAID ==
[~2020-01-17] VITALS: Ht 152.4 cm; Wt 111.2 kg
[~2020-01-17 13:29] MED LIST changes: -CLIN45GE TOP; -COLL30OI TP; -GABA-534 PO; -GLIP-192 PO; -HUM7525 SQ; +INSU100C4 SQ; +LACT1CAP26 PO; +LANTUS SQ; -NORE-126 PO; -SITA100T15 PO; +TRIA15CR61 TP; +WOOL454C TP
[2020-01-17 13:38] VITALS: BP 159/84
[2020-01-17 15:30] LABS: BASOPHILS # (AUTO) 0.1 X10'3 (0-0.2); EOSINOPHILS # (AUTO) 0.8 X10'3 (0-0.9); EOSINOPHILS % (AUTO) 8.7 % (0-6); HEMATOCRIT 41.6 % (35.0-45.0); HEMOGLOBIN 13.6 g/dl (12.0-16.0); LYMPHOCYTES # (AUTO) 2.2 X10'3 (1.1-4.8); LYMPHOCYTES % (AUTO) 25.2 % (21-51); MEAN CORPUSCULAR HEMOGLOBIN 27.1 PG (27.0-31.0); MEAN CORPUSCULAR HGB CONC 32.8 g/dL (33.0-36.5); MEAN CORPUSCULAR VOLUME 82.6 FL (78-98); MONOCYTES # (AUTO) 0.5 X10'3 (0-0.9); MONOCYTES % (AUTO) 5.3 % (2-12); NEUTROPHILS # (AUTO) 5.2 X10'3 (1.8-7.7); NEUTROPHILS % (AUTO) 59.8 % (42-75); PLATELET COUNT 343 X10'3 (140-440); RED BLOOD COUNT 5.04 X10'6 (4.20-5.60); RED CELL DISTRIBUTION WIDTH 15.6 % (11.5-14.5); WHITE BLOOD COUNT 8.7 X10'3 (4.5-11.0)
--- NOTE | 2020-01-17 15:37 | NUR ---
RETURNED TELEPHONE EQUIPMENT APPRAISER AT BEDSIDE.
[2020-01-17 15:42] LABS: ALANINE AMINOTRANSFERASE 21 U/L (12-78); ALBUMIN 3.1 G/DL (3.4-5.0); ALBUMIN/GLOBULIN RATIO 0.7 (1.1-1.5); ALKALINE PHOSPHATASE 130 IU/L (46-116); ANION GAP 7 (8-16); ASPARTATE AMINO TRANSFERASE 14 U/L (10-37); BILIRUBIN,TOTAL 0.3 MG/DL (0.1-1.0); BLOOD UREA NITROGEN 17 MG/DL (7-18); BUN/CREATININE RATIO 18.9 (6.6-38.0); CALCIUM 9.1 MG/DL (8.5-10.1); CHLORIDE 97 MMOL/L (99-107); POTASSIUM 4.3 MMOL/L (3.5-5.1); SODIUM 132 MMOL/L (135-145); TOTAL CARBON DIOXIDE 27.8 MMOL/L (24-32); TOTAL PROTEIN 7.5 G/DL (6.4-8.2); eGFR 67 ML/MIN
[2020-01-17 15:44] LABS: GLUCOSE 467 MG/DL (70-104)
[2020-01-17] MEDS ORDERED: insulin regular, human 10 units/0.1 ml syringe SQ ONE (15:45)
[2020-01-17] MEDS ORDERED: insulin regular, human U-100 3ml vial - multi-dose SQ ONE (15:55)
[2020-01-17] MEDS ORDERED: FURO40TA4 PO (15:56)
[2020-01-17] MEDS ORDERED: POTA20TA19 PO (15:56)
[2020-01-17] MEDS ORDERED: DOXY100C43 PO (15:56)
== END 2020-01-17 16:37 | disposition home or self-care (01) ==
LOC: ER 13:29
DX: E11.621 Type 2 diabetes mellitus with foot ulcer (principal); L97.529 Non-pressure chronic ulcer of other part of left foot with unspecified severity; R60.9 Edema, unspecified; E11.65 Type 2 diabetes mellitus with hyperglycemia; E11.42 Type 2 diabetes mellitus with diabetic polyneuropathy; I10 Essential (primary) hypertension; F41.9 Anxiety disorder, unspecified; Z86.19 Personal history of other infectious and parasitic diseases; Z79.4 Long term (current) use of insulin; Z79.899 Other long term (current) drug therapy
CPT/HCPCS: 36415; 80053; 84145; 85025; 93971; 99284; J1815

== ENCOUNTER 2020-07-04 10:31 | Emergency (ER) | payer MEDICAID ==
[~2020-07-04] VITALS: Ht 152.4 cm; Wt 102.0 kg
[2020-07-04 10:32] VITALS: BP 158/87
[2020-07-04] MEDS ORDERED: CEPH250T PO (11:08)
== END 2020-07-04 11:46 | disposition home or self-care (01) ==
LOC: ER 10:31
DX: L97.929 Non-pressure chronic ulcer of unspecified part of left lower leg with unspecified severity (principal); L90.9 Atrophic disorder of skin, unspecified; E11.42 Type 2 diabetes mellitus with diabetic polyneuropathy; I10 Essential (primary) hypertension; G89.29 Other chronic pain; F41.9 Anxiety disorder, unspecified; Z86.14 Personal history of Methicillin resistant Staphylococcus aureus infection; Z88.1 Allergy status to other antibiotic agents; Z79.4 Long term (current) use of insulin; Z79.899 Other long term (current) drug therapy
CPT/HCPCS: 99284

== ENCOUNTER 2020-09-27 23:06 | Emergency (ER) | payer MEDICAID ==
[~2020-09-27] VITALS: Ht 147.3 cm; Wt 90.9 kg
[2020-09-27 23:18] VITALS: BP 162/87
[2020-09-28] MEDS ORDERED: diphenhydrAMINE 25mg capsule PO ONE
== END 2020-09-28 01:56 | disposition home or self-care (01) ==
LOC: ER 23:06
DX: J06.9 Acute upper respiratory infection, unspecified (principal); J34.89 Other specified disorders of nose and nasal sinuses; Z20.828 Contact with and (suspected) exposure to other viral communicable diseases; I10 Essential (primary) hypertension; E11.9 Type 2 diabetes mellitus without complications; G89.29 Other chronic pain; F41.9 Anxiety disorder, unspecified; Z86.14 Personal history of Methicillin resistant Staphylococcus aureus infection; Z79.4 Long term (current) use of insulin; Z79.899 Other long term (current) drug therapy
CPT/HCPCS: 36415; 87081; 87880; 99283; Q0163

== ENCOUNTER 2021-12-03 16:34 | Inpatient (IN) | payer MEDICAID ==
[~2021-12-03] VITALS: Ht 304.8 cm; Wt 104.5 kg
[2021-12-03] MEDS ORDERED: diphenhydrAMINE 50 mg/ml inj IV ONE (16:45)
[2021-12-03] MEDS ORDERED: Neutra Phos packet PO PRN ×2 (16:45→20:30)
[2021-12-03] MEDS ORDERED: sodium phosphate inj. 30 MMOL in dextrose 5%-water 250 ML IV PRN ×2 (16:45→20:30)
[2021-12-03] MEDS ORDERED: potassium Cl 40MEQ/1/2NS 520ml 520 ML IV PRN ×4 (16:45→20:30)
[2021-12-03] MEDS ORDERED: normal saline 1000ML IV soln IVB ONE ×2 (16:45)
[2021-12-03] MEDS ORDERED: insulin regular, human U-100 3ml vial - multi-dose IV PRN ×2 (16:45→20:30)
[2021-12-03] MEDS ORDERED: potassium Cl 20 mEq SR tablet PO PRN ×6 (16:45→20:30)
[2021-12-03] MEDS ORDERED: metoclopramide 5 mg/ml inj IV ONE (16:45)
[2021-12-03] MEDS ORDERED: sodium phosphate inj. 15 MMOL in dextrose 5%-water 250 ML IV PRN ×2 (16:45→20:30)
[2021-12-03 17:33] LABS: BASOPHILS % (AUTO) 0.4 % (0-1); EOSINOPHILS % (AUTO) 0 % (0-6); HEMATOCRIT 51.5 % (35.0-45.0); HEMOGLOBIN 16.2 g/dl (12.0-16.0); LYMPHOCYTES # (AUTO) 0.9 X10'3 (1.1-4.8); LYMPHOCYTES % (AUTO) 12.2 % (21-51); MEAN CORPUSCULAR HEMOGLOBIN 27.3 PG (27.0-31.0); MEAN CORPUSCULAR HGB CONC 31.5 g/dL (33.0-36.5); MEAN CORPUSCULAR VOLUME 86.8 FL (78-98); MEAN PLATELET VOLUME 8.8 FL (7.4-10.4); MONOCYTES # (AUTO) 0.6 X10'3 (0-0.9); NEUTROPHILS # (AUTO) 5.5 X10'3 (1.8-7.7); NEUTROPHILS % (AUTO) 78.4 % (42-75); PLATELET COUNT 251 X10'3 (140-440); RED BLOOD COUNT 5.93 X10'6 (4.20-5.60); RED CELL DISTRIBUTION WIDTH 15.4 % (11.5-14.5)
[2021-12-03] MEDS: normal saline 1000ml 1,000 ML IV SCH ×4 (17:39→23:34)
[2021-12-03 17:47] LABS: HCG SERUM QL NEGATIVE
[2021-12-03 18:12] LABS: ALANINE AMINOTRANSFERASE 28 U/L (12-78); ALBUMIN 3.6 G/DL (3.4-5.0); ALBUMIN/GLOBULIN RATIO 0.6 (1.1-1.5); ALKALINE PHOSPHATASE 146 IU/L (46-116); ANION GAP 26 (8-16); ASPARTATE AMINO TRANSFERASE 18 U/L (10-37); BILIRUBIN,TOTAL 0.4 MG/DL (0.1-1.0); BLOOD UREA NITROGEN 27 MG/DL (7-18); BUN/CREATININE RATIO 22.5 (6.6-38.0); CALCIUM 9.1 MG/DL (8.5-10.1); CHLORIDE 96 MMOL/L (99-107); LIPASE 82 U/L (73-393); MAGNESIUM 2.2 MG/DL (1.5-2.4); PHOSPHORUS 5.1 MG/DL (2.3-4.5); POTASSIUM 5.4 MMOL/L (3.5-5.1); SODIUM 129 MMOL/L (135-145); TOTAL PROTEIN 9.4 G/DL (6.4-8.2); eGFR 48 ML/MIN
[2021-12-03] MEDS: Insulin Reg/NS 100units/100mL 100 ML IV SCH (18:12)
[2021-12-03 18:15] LABS: GLUCOSE 532 MG/DL (70-104); TOTAL CARBON DIOXIDE 6.7 MMOL/L (24-32)
--- NOTE | 2021-12-03 19:15 | NUR ---
ABG delayed due to Nursing care
[2021-12-03 19:19] LABS: C-REACTIVE PROTEIN 4.81 MG/DL (0.0-0.5)
[2021-12-03 19:36] LABS: D-DIMER 0.76 MG/L FEU (0-0.50)
[2021-12-03 20:00] LABS: ABG BASE EXCESS -21.2 mmol/L (-2.0-2.0); ABG HCO3 4.6 mmol/L (22.0-26.0); ABG OXYGEN SATURATION 96.5 % (94-97); ABG PCO2 (T) 12.6 mmHg (32.0-45.0); ABG PO2 (T) 95.8 mmHg (75.0-100.0); ALLEN'S TEST POSITIVE; FCOHb 0.4 % (0.0-3.9); FMetHb 0.3 % (0.0-1.5); FO2Hb 95.8 % (94-97); PATIENT TEMPERATURE 36.3; TOTAL HEMOGLOBIN 15.1 G/dl (12.0-16.0)
[2021-12-03] MEDS: K and/or MAG REPLACEMENT MC SCH (20:00)
[2021-12-03 20:18] LABS: CLARITY,URINE CLEAR (Clear); COLOR,URINE YELLOW (Yellow); GLUCOSE, URINE >=1000 mg/dl (Neg); KETONES,URINE >=80 mg/dl (Neg); LEUKOCYTE ESTERASE ,URINE NEGATIVE (Neg); NITRITES, URINE NEGATIVE (Neg); OCCULT BLOOD,URINE MODERATE (Neg); PROTEIN,URINE 30 mg/dl (Neg); UROBILINOGEN,URINE 0.2 E.U/dL (0.2-1.0)
[2021-12-03] MEDS ORDERED: acetaminophen 325mg tablet PO PRN (20:20)
[2021-12-03] MEDS ORDERED: magnesium 2GM in 50ml NS 50 ML IV PRN (20:20)
[2021-12-03] MEDS ORDERED: HYDROcodone/acetaminophen 10/325mg tab PO PRN (20:20)
[2021-12-03] MEDS ORDERED: magnesium Cl slow-release 64mg tablet PO PRN (20:20)
[2021-12-03] MEDS ORDERED: ondansetron/PF 4mg/2ml inj IV PRN (20:20)
[2021-12-03] MEDS ORDERED: HYDROcodone/acetaminophen 5mg/325mg tablet PO PRN (20:20)
[2021-12-03] MEDS ORDERED: mag hydrox/Alum hydrox/simeth 30ml oral suspension PO PRN (20:20)
[2021-12-03] MEDS ORDERED: potassium CL 10mEq/100ml bag 100 ML IV PRN (20:20)
[2021-12-03] MEDS ORDERED: magnesium hydroxide 30ml (MOM) UD suspension PO PRN (20:20)
[2021-12-03] MEDS ORDERED: magnesium 4gm in 100ml NS 100 ML IV PRN (20:20)
[2021-12-03] MEDS ORDERED: sodium bicarbonate (8.4%) inj. 50 MEQ in dextrose 5% water 500ml 250 ML IV PRN (20:30)
[2021-12-03] MEDS ORDERED: Insulin Reg/NS 100units/100mL 100 ML IV SCH (20:30)
[2021-12-03] MEDS ORDERED: sodium bicarbonate (8.4%) inj. 100 MEQ in dextrose 5% water 500ml 500 ML IV PRN (20:30)
[2021-12-03] MEDS ORDERED: normal saline 1000ml 1,000 ML IV SCH (20:30)
[2021-12-03] MEDS ORDERED: potassium CL 20mEq in D5-1/2NS 1,000 ML IV PRN (20:30)
[2021-12-03 20:32] LABS: UA COLLECTION TYPE NON-SPECIFIED
[2021-12-03 20:43] LABS: WBC,URINE 0-4 /HPF (0-4)
[2021-12-03 20:44] LABS: BACTERIA,URINE FEW /HPF (Neg); HYALINE CASTS 0-3 /LPF (NEGATIVE); MUCUS STRANDS NONE SEEN /LPF (Neg); SQUAMOUS EPITHELIAL CELL,UR FEW /LPF (FEW)
[2021-12-03 23:30] LABS: ALBUMIN 2.8 G/DL (3.4-5.0); ANION GAP 14 (8-16); BLOOD UREA NITROGEN 22 MG/DL (7-18); CALCIUM 7.5 MG/DL (8.5-10.1); CHLORIDE 107 MMOL/L (99-107); CREATININE 0.88 MG/DL (0.40-0.90); GLUCOSE 229 MG/DL (70-104); POTASSIUM 4.2 MMOL/L (3.5-5.1); SODIUM 131 MMOL/L (135-145); eGFR 68 ML/MIN
[2021-12-03 23:37] LABS: TOTAL CARBON DIOXIDE 10.1 MMOL/L (24-32)
[2021-12-03] MEDS: potassium CL 20mEq in D5-1/2NS 1,000 ML IV PRN (23:41)
[2021-12-04] MEDS: normal saline 1000ml 1,000 ML IV SCH ×6 (00:45→20:45)
[2021-12-04 02:06] LABS: BASOPHILS % (AUTO) 0.4 % (0-1); EOSINOPHILS % (AUTO) 0 % (0-6); HEMATOCRIT 41.7 % (35.0-45.0); HEMOGLOBIN 13.5 g/dl (12.0-16.0); LYMPHOCYTES # (AUTO) 2.2 X10'3 (1.1-4.8); LYMPHOCYTES % (AUTO) 24.7 % (21-51); MEAN CORPUSCULAR HEMOGLOBIN 27.2 PG (27.0-31.0); MEAN CORPUSCULAR HGB CONC 32.4 g/dL (33.0-36.5); MONOCYTES # (AUTO) 0.8 X10'3 (0-0.9); MONOCYTES % (AUTO) 9.2 % (2-12); NEUTROPHILS # (AUTO) 5.8 X10'3 (1.8-7.7); NEUTROPHILS % (AUTO) 65.7 % (42-75); PLATELET COUNT 224 X10'3 (140-440); RED BLOOD COUNT 4.96 X10'6 (4.20-5.60); RED CELL DISTRIBUTION WIDTH 14.7 % (11.5-14.5); WHITE BLOOD COUNT 8.8 X10'3 (4.5-11.0)
[2021-12-04 02:20] LABS: ALANINE AMINOTRANSFERASE 20 U/L (12-78); ALBUMIN 2.7 G/DL (3.4-5.0); ALBUMIN/GLOBULIN RATIO 0.6 (1.1-1.5); ALKALINE PHOSPHATASE 103 IU/L (46-116); ANION GAP 17 (8-16); ASPARTATE AMINO TRANSFERASE 18 U/L (10-37); BILIRUBIN,TOTAL 0.2 MG/DL (0.1-1.0); BLOOD UREA NITROGEN 20 MG/DL (7-18); BUN/CREATININE RATIO 25.3 (6.6-38.0); CALCIUM 7.6 MG/DL (8.5-10.1); CHLORIDE 110 MMOL/L (99-107); CREATININE 0.79 MG/DL (0.40-0.90); GLUCOSE 170 MG/DL (70-104); MAGNESIUM 1.8 MG/DL (1.5-2.4); PHOSPHORUS 1.8 MG/DL (2.3-4.5); POTASSIUM 3.8 MMOL/L (3.5-5.1); SODIUM 138 MMOL/L (135-145); TOTAL PROTEIN 7.2 G/DL (6.4-8.2); eGFR 77 ML/MIN
[2021-12-04 02:24] LABS: TOTAL CARBON DIOXIDE 10.8 MMOL/L (24-32)
[2021-12-04] MEDS: hydrALAZINE 20mg/ml inj. IV SCH ×4 (02:35→20:11)
--- NOTE | 2021-12-04 06:30 | NUR ---
first contact with pt, found supine in bed. insulin gtt running, will check bs at 0645. pt in no distress, awaiting bed assignment.
[2021-12-04] MEDS: docusate sod 100mg capsule PO SCH ×2 (08:00→20:11)
[2021-12-04] MEDS: lisinopril 2.5mg tablet PO SCH (08:00)
[2021-12-04] MEDS ORDERED: K and/or MAG REPLACEMENT MC SCH (08:00)
[2021-12-04] MEDS: K and/or MAG REPLACEMENT MC SCH ×4 (08:00→20:00)
--- NOTE | 2021-12-04 08:15 | NUR ---
pt up to bsc independently, no incidents.
[2021-12-04] MEDS: enoxaparin 40mg/0.4ml syringe SUBCUT SCH (08:28)
[2021-12-04 09:21] LABS: ALANINE AMINOTRANSFERASE 22 U/L (12-78); ALBUMIN 2.7 G/DL (3.4-5.0); ALBUMIN/GLOBULIN RATIO 0.6 (1.1-1.5); ALKALINE PHOSPHATASE 100 IU/L (46-116); ANION GAP 16 (8-16); ASPARTATE AMINO TRANSFERASE 20 U/L (10-37); BILIRUBIN,TOTAL 0.2 MG/DL (0.1-1.0); BLOOD UREA NITROGEN 16 MG/DL (7-18); CALCIUM 7.7 MG/DL (8.5-10.1); CHLORIDE 107 MMOL/L (99-107); CREATININE 0.64 MG/DL (0.40-0.90); GLUCOSE 180 MG/DL (70-104); POTASSIUM 3.8 MMOL/L (3.5-5.1); SODIUM 135 MMOL/L (135-145); TOTAL PROTEIN 7.2 G/DL (6.4-8.2); eGFR > 90 ML/MIN
[2021-12-04 09:33] LABS: TOTAL CARBON DIOXIDE 11.7 MMOL/L (24-32)
--- NOTE | 2021-12-04 10:13 | NUR ---
paged hospitalist regarding insulin gtt orders.
--- NOTE | 2021-12-04 12:00 | NUR ---
re-started ns at 250jml/hr after bs 351.
--- NOTE | 2021-12-04 12:35 | NUR ---
received call from hospitalist regarding insulin gtt. will give pt lunch tray and follow insulin protocol. plan is to switch to subq insulin when bs reaches 200.
[2021-12-04 13:15] LABS: ALANINE AMINOTRANSFERASE 23 U/L (12-78); ALBUMIN 2.8 G/DL (3.4-5.0); ALBUMIN/GLOBULIN RATIO 0.5 (1.1-1.5); ALKALINE PHOSPHATASE 113 IU/L (46-116); ANION GAP 17 (8-16); ASPARTATE AMINO TRANSFERASE 22 U/L (10-37); BILIRUBIN,TOTAL 0.2 MG/DL (0.1-1.0); BLOOD UREA NITROGEN 15 MG/DL (7-18); CALCIUM 8.2 MG/DL (8.5-10.1); CHLORIDE 104 MMOL/L (99-107); CREATININE 0.75 MG/DL (0.40-0.90); GLUCOSE 251 MG/DL (70-104); POTASSIUM 3.5 MMOL/L (3.5-5.1); SODIUM 134 MMOL/L (135-145); TOTAL PROTEIN 8.3 G/DL (6.4-8.2); eGFR 82 ML/MIN
[2021-12-04 13:17] LABS: TOTAL CARBON DIOXIDE 13.4 MMOL/L (24-32)
[2021-12-04] MEDS ORDERED: LANTUS SQ (13:38)
--- NOTE | 2021-12-04 13:45 | NUR ---
hospialist at bedside.
[2021-12-04] MEDS: Insulin Reg/NS 100units/100mL 100 ML IV SCH (14:38)
--- NOTE | 2021-12-04 15:15 | NUR ---
Patient in room PCU 3008. I have received report from Julia in the ED and had the opportunity to ask questions and assume patient care. Insulin running at 5.5 and NS @250 when patient arrived on floor.
[2021-12-04] MEDS: potassium CL 20mEq in D5-1/2NS 1,000 ML IV PRN (16:07)
--- NOTE | 2021-12-04 17:06 | NUR ---
Page Sent PAGER ID: [phone] MESSAGE: Room 3008A: Manjit Kang: Pt is on DKA protocol but has a diet. Can I make her NPO to maintain the protocol? Nneka 21
[2021-12-04 17:15] VITALS: BP 153/86
[2021-12-04 17:38] LABS: ALBUMIN 2.4 G/DL (3.4-5.0); ANION GAP 12 (8-16); BLOOD UREA NITROGEN 12 MG/DL (7-18); BUN/CREATININE RATIO 20.3 (6.6-38.0); CALCIUM 7.7 MG/DL (8.5-10.1); CHLORIDE 101 MMOL/L (99-107); CREATININE 0.59 MG/DL (0.40-0.90); GLUCOSE 240 MG/DL (70-104); POTASSIUM 3.1 MMOL/L (3.5-5.1); SODIUM 127 MMOL/L (135-145); eGFR > 90 ML/MIN
--- NOTE | 2021-12-04 18:25 | NUR ---
Problems reprioritized. Patient report given, questions answered & plan of care reviewed with Amelia WARE.
[2021-12-04 21:00] VITALS: BP 150/86
[2021-12-04 21:21] LABS: ALANINE AMINOTRANSFERASE 21 U/L (12-78); ALBUMIN 2.6 G/DL (3.4-5.0); ALBUMIN/GLOBULIN RATIO 0.5 (1.1-1.5); ALKALINE PHOSPHATASE 101 IU/L (46-116); ANION GAP 14 (8-16); ASPARTATE AMINO TRANSFERASE 25 U/L (10-37); BILIRUBIN,TOTAL 0.3 MG/DL (0.1-1.0); BLOOD UREA NITROGEN 11 MG/DL (7-18); BUN/CREATININE RATIO 19.6 (6.6-38.0); CALCIUM 8.1 MG/DL (8.5-10.1); CHLORIDE 103 MMOL/L (99-107); CREATININE 0.56 MG/DL (0.40-0.90); GLUCOSE 210 MG/DL (70-104); SODIUM 132 MMOL/L (135-145); TOTAL CARBON DIOXIDE 15.1 MMOL/L (24-32); TOTAL PROTEIN 7.4 G/DL (6.4-8.2); eGFR > 90 ML/MIN
[2021-12-04 21:33] LABS: POTASSIUM 3.2 MMOL/L (3.5-5.1)
[2021-12-04] MEDS ORDERED: sodium bicarbonate (8.4%) inj. 1 MEQ/ML ML IV ONE (22:45)
[2021-12-04] MEDS: guaiFENesin/DM 10ml UD oral syrup PO PRN (23:04)
[2021-12-05] MEDS: normal saline 1000ml 1,000 ML IV SCH ×6 (00:45→16:39)
[2021-12-05 01:00] VITALS: BP 128/76
[2021-12-05] MEDS: potassium CL 20mEq in D5-1/2NS 1,000 ML IV PRN ×3 (01:36→22:27)
[2021-12-05] MEDS: hydrALAZINE 20mg/ml inj. IV SCH ×4 (02:32→20:08)
[2021-12-05 05:00] VITALS: BP 131/62
--- NOTE | 2021-12-05 06:05 | NUR ---
Problems reprioritized. Patient report given, questions answered & plan of care reviewed with JEANIE Armenta.
[2021-12-05 07:13] LABS: BASOPHILS % (AUTO) 0.3 % (0-1); EOSINOPHILS % (AUTO) 0.5 % (0-6); HEMATOCRIT 37.1 % (35.0-45.0); HEMOGLOBIN 12.5 g/dl (12.0-16.0); LYMPHOCYTES # (AUTO) 1.7 X10'3 (1.1-4.8); LYMPHOCYTES % (AUTO) 32.2 % (21-51); MEAN CORPUSCULAR HGB CONC 33.7 g/dL (33.0-36.5); MEAN CORPUSCULAR VOLUME 80.1 FL (78-98); MEAN PLATELET VOLUME 8.4 FL (7.4-10.4); MONOCYTES # (AUTO) 0.5 X10'3 (0-0.9); MONOCYTES % (AUTO) 8.9 % (2-12); NEUTROPHILS # (AUTO) 3.1 X10'3 (1.8-7.7); NEUTROPHILS % (AUTO) 58.1 % (42-75); PLATELET COUNT 215 X10'3 (140-440); RED BLOOD COUNT 4.64 X10'6 (4.20-5.60); RED CELL DISTRIBUTION WIDTH 14.2 % (11.5-14.5); WHITE BLOOD COUNT 5.3 X10'3 (4.5-11.0)
[2021-12-05] MEDS: Insulin Reg/NS 100units/100mL 100 ML IV SCH (07:23)
[2021-12-05] MEDS: insulin Lispro (HumaLOG) vial - multi-dose SQ SCH ×3 (07:25→17:32)
[2021-12-05] MEDS: enoxaparin 40mg/0.4ml syringe SUBCUT SCH (07:28)
[2021-12-05] MEDS: lisinopril 2.5mg tablet PO SCH (07:30)
[2021-12-05] MEDS: docusate sod 100mg capsule PO SCH ×2 (07:30→20:07)
[2021-12-05 07:47] LABS: ALANINE AMINOTRANSFERASE 16 U/L (12-78); ALBUMIN 2.2 G/DL (3.4-5.0); ALBUMIN/GLOBULIN RATIO 0.5 (1.1-1.5); ALKALINE PHOSPHATASE 82 IU/L (46-116); ANION GAP 12 (8-16); ASPARTATE AMINO TRANSFERASE 21 U/L (10-37); BILIRUBIN,TOTAL 0.3 MG/DL (0.1-1.0); BLOOD UREA NITROGEN 7 MG/DL (7-18); BUN/CREATININE RATIO 15.9 (6.6-38.0); CALCIUM 7.8 MG/DL (8.5-10.1); CHLORIDE 104 MMOL/L (99-107); CREATININE 0.44 MG/DL (0.40-0.90); GLUCOSE 163 MG/DL (70-104); MAGNESIUM 1.7 MG/DL (1.5-2.4); SODIUM 134 MMOL/L (135-145); TOTAL CARBON DIOXIDE 17.9 MMOL/L (24-32); TOTAL PROTEIN 6.3 G/DL (6.4-8.2); eGFR > 90 ML/MIN
[2021-12-05 07:54] LABS: PHOSPHORUS 1.1 MG/DL (2.3-4.5); POTASSIUM 2.9 MMOL/L (3.5-5.1)
[2021-12-05] MEDS: K and/or MAG REPLACEMENT MC SCH ×4 (08:00→20:00)
--- NOTE | 2021-12-05 10:05 | NUR ---
Pt Phos 1.1 and K 2.9 notified MD she will put orders in for Phos and pt is already getting K. also said to keep pt on DKA protocol and drip even though pt is eating.
[2021-12-05] MEDS: guaiFENesin/DM 10ml UD oral syrup PO PRN ×2 (11:24→20:07)
--- NOTE | 2021-12-05 11:27 | NUR ---
DM Consult: Pt admit dx DKA, COVID-19, HTN, and hyponatremia per EMR. Initial BG 595 mg/dL down to 247 mg/dL this AM on insulin drip per EMR. Noted pt A1c of 11.6 and hx of DM type II requiring insulin however patient has been forgetting to take it recently per MD note. Per EMR pt home meds are 100 units Novalog AC, Lantus 70 units HS, and Metformin BID. Pt refused first carb controlled meal, pending further PO trends. No documented BM, receiving routine bowel care. Pt could benefit from DM education when more appropriate. Will continue to monitor closely. Recommendations: 1. Continue Carb Controlled diet as tolerated 2. Monitor need for additional protein/ONS 3. Encourage PO intake 4. Routine Bowel care 5. Scaled wt this admit, subsequent weekly wt 6. DM education by RIZWANA once more appropriate prior to discharge Addendum: 12/05/21 at [address] Amended: Links added. Addendum: 12/05/21 at [address] RIZWANA has reviewed and approves of above note.
[2021-12-05] MEDS: Neutra Phos packet PO SCH ×2 (14:30→20:07)
[2021-12-05 15:00] VITALS: BP 137/77
--- NOTE | 2021-12-05 18:15 | NUR ---
Patient in room PCU 3008. I have received report from JEANIE Armenta and had the opportunity to ask questions and assume patient care.
[2021-12-05 19:00] VITALS: BP 131/77
[2021-12-05 23:00] VITALS: BP 130/88
[2021-12-06] MEDS: normal saline 1000ml 1,000 ML IV SCH ×6 (00:45→20:45)
[2021-12-06] MEDS: guaiFENesin/DM 10ml UD oral syrup PO PRN ×3 (00:49→19:28)
[2021-12-06] MEDS: hydrALAZINE 20mg/ml inj. IV SCH ×4 (01:58→19:28)
[2021-12-06 03:00] VITALS: BP 147/85
[2021-12-06] MEDS: Insulin Reg/NS 100units/100mL 100 ML IV SCH (04:47)
[2021-12-06] MEDS: potassium CL 20mEq in D5-1/2NS 1,000 ML IV PRN (05:13)
--- NOTE | 2021-12-06 06:12 | NUR ---
Problems reprioritized. Patient report given, questions answered & plan of care reviewed with JEANIE Armenta.
[2021-12-06 08:00] VITALS: BP 132/74
[2021-12-06] MEDS: docusate sod 100mg capsule PO SCH ×2 (08:00→19:52)
[2021-12-06] MEDS: K and/or MAG REPLACEMENT MC SCH ×3 (08:00→20:19)
[2021-12-06 08:07] LABS: BASOPHILS % (AUTO) 0.3 % (0-1); EOSINOPHILS # (AUTO) 0.1 X10'3 (0-0.9); EOSINOPHILS % (AUTO) 1.4 % (0-6); HEMATOCRIT 35.5 % (35.0-45.0); LYMPHOCYTES # (AUTO) 1.4 X10'3 (1.1-4.8); LYMPHOCYTES % (AUTO) 28.2 % (21-51); MEAN CORPUSCULAR HEMOGLOBIN 26.9 PG (27.0-31.0); MEAN CORPUSCULAR HGB CONC 33.9 g/dL (33.0-36.5); MEAN CORPUSCULAR VOLUME 79.4 FL (78-98); MEAN PLATELET VOLUME 8.8 FL (7.4-10.4); MONOCYTES # (AUTO) 0.5 X10'3 (0-0.9); MONOCYTES % (AUTO) 10.6 % (2-12); NEUTROPHILS # (AUTO) 3.1 X10'3 (1.8-7.7); NEUTROPHILS % (AUTO) 59.5 % (42-75); PLATELET COUNT 210 X10'3 (140-440); RED BLOOD COUNT 4.47 X10'6 (4.20-5.60); RED CELL DISTRIBUTION WIDTH 14.3 % (11.5-14.5); WHITE BLOOD COUNT 5.1 X10'3 (4.5-11.0)
[2021-12-06] MEDS: insulin Lispro (HumaLOG) vial - multi-dose SQ SCH ×3 (08:31→22:51)
[2021-12-06 08:39] LABS: ALANINE AMINOTRANSFERASE 17 U/L (12-78); ALBUMIN 2.1 G/DL (3.4-5.0); ALBUMIN/GLOBULIN RATIO 0.5 (1.1-1.5); ALKALINE PHOSPHATASE 84 IU/L (46-116); ANION GAP 11 (8-16); ASPARTATE AMINO TRANSFERASE 17 U/L (10-37); BILIRUBIN,TOTAL 0.3 MG/DL (0.1-1.0); BLOOD UREA NITROGEN 6 MG/DL (7-18); BUN/CREATININE RATIO 12.5 (6.6-38.0); CALCIUM 7.7 MG/DL (8.5-10.1); CHLORIDE 105 MMOL/L (99-107); CREATININE 0.48 MG/DL (0.40-0.90); GLUCOSE 161 MG/DL (70-104); MAGNESIUM 1.7 MG/DL (1.5-2.4); PHOSPHORUS 2.1 MG/DL (2.3-4.5); SODIUM 138 MMOL/L (135-145); TOTAL CARBON DIOXIDE 21.9 MMOL/L (24-32); TOTAL PROTEIN 6.1 G/DL (6.4-8.2); eGFR > 90 ML/MIN
[2021-12-06 08:40] LABS: POTASSIUM 2.7 MMOL/L (3.5-5.1)
[2021-12-06] MEDS: enoxaparin 40mg/0.4ml syringe SUBCUT SCH (08:40)
[2021-12-06] MEDS: lisinopril 2.5mg tablet PO SCH (08:40)
[2021-12-06] MEDS: Neutra Phos packet PO SCH ×3 (08:40→20:19)
--- NOTE | 2021-12-06 10:00 | NUR ---
Page Sent PAGER ID: [phone] MESSAGE: Pt Manjit Kang in rm 3008 is still on DKA protocol. Pt CO2 is now 21.9 and Anion Gap is 11. Last Sugars were 148 @ 0730 and 198 @ 0842. Can we take off insulin drip? [facility] 6038
--- NOTE | 2021-12-06 11:00 | NUR ---
per Dr. Chan due pt is able come off of DKA protocol. Stopped insulin drip. aware that pts K was low, didn't want to replace at this time and see what it comes up to when no that Pt is off drip. Will start pt on level 1 on hyperglycemic protocol.
[2021-12-06] MEDS ORDERED: dextrose 50%-water 50ml dispensing syringe IV PRN ×4 (11:55→21:05)
[2021-12-06] MEDS ORDERED: DEXTROSE 15 GM of carb/4 tabs (each vial/BOTTLE has 4 tablets) PO PRN ×4 (11:55→21:05)
[2021-12-06] MEDS ORDERED: glucagon, human recombinant 1mg kit SUBCUT PRN ×2 (11:55→21:05)
[2021-12-06] MEDS ORDERED: MESSAGE TO PHARMACY PO ONE ×2 (11:55→21:05)
[2021-12-06 12:00] VITALS: BP 142/62
--- NOTE | 2021-12-06 12:12 | NUR ---
Page Sent PAGER ID: [phone] MESSAGE: BANDAR Garcia Manjit Kang in rm 3008 just had Ultrasound of abdomen and gallstones were found. She is tender to the touch but no constant pain. [facility] 9824
--- NOTE | 2021-12-06 14:30 | NUR ---
Pt finished lunch late covered her with 6 total units per hyperglycemic protocol
--- NOTE | 2021-12-06 18:10 | NUR ---
Patient in room ORTHO 4023. I have received report from JEANIE Armenta and had the opportunity to ask questions and assume patient care.
[2021-12-06 19:00] VITALS: BP 133/78
[2021-12-06] MEDS ORDERED: potassium CL 10mEq/100ml bag 100 ML IV PRN (20:00)
[2021-12-06] MEDS ORDERED: potassium Cl 20 mEq SR tablet PO PRN (20:00)
[2021-12-06] MEDS ORDERED: magnesium Cl slow-release 64mg tablet PO PRN (20:00)
[2021-12-06] MEDS ORDERED: magnesium 4gm in 100ml NS 100 ML IV PRN (20:00)
[2021-12-06] MEDS: potassium Cl 20 mEq SR tablet PO PRN (20:19)
[2021-12-06 20:40] VITALS: BP 131/73
--- NOTE | 2021-12-06 20:40 | NUR ---
Patient will be transf to the 4th floor COVID unit, left in stable condition via wheelchair with all belongings. Called placed to JEANIE Lovett busy at this time, will call her back.
--- NOTE | 2021-12-06 21:03 | NUR ---
Problems reprioritized. Patient report given, questions answered & plan of care reviewed with JEANIE Lovett.
[2021-12-06] MEDS ORDERED: insulin Lispro (HumaLOG) vial - multi-dose SQ SCH (21:05)
[2021-12-06 21:43] LABS: MAGNESIUM 1.8 MG/DL (1.5-2.4); POTASSIUM 3.1 MMOL/L (3.5-5.1)
[2021-12-06 22:00] VITALS: BP 142/79
[2021-12-06] MEDS ORDERED: insulin glargine (Lantus) pen - multi-dose SQ SCH (22:42)
[2021-12-07] MEDS: normal saline 1000ml 1,000 ML IV SCH (00:25)
[2021-12-07] MEDS: metoprolol tartrate 50mg tablet PO SCH ×2 (00:56→08:10)
[2021-12-07] MEDS: guaiFENesin/DM 10ml UD oral syrup PO PRN ×3 (01:03→11:57)
--- NOTE | 2021-12-07 01:15 | NUR ---
2100 ASSUMED CARE OF PATIENT WITH VERBAL REPORT FROM HELEN WARE AND AGREE WITH PATIENT ASSMT. RESTING COMFORTABLY IN BED WITH CALL LIGHT IN REACH.
[2021-12-07] MEDS: hyDRALAzine 10mg tablet PO SCH ×3 (01:29→14:00)
[2021-12-07] MEDS: potassium Cl 20 mEq SR tablet PO PRN ×2 (01:29→13:00)
[2021-12-07 01:58] VITALS: BP 150/85
--- NOTE | 2021-12-07 06:27 | NUR ---
Problems reprioritized. Patient report given, questions answered & plan of care reviewed with LESLEE WARE.
--- NOTE | 2021-12-07 06:30 | NUR ---
Received report from JEANIE Lovett
[2021-12-07 06:31] VITALS: BP 116/76
[2021-12-07 07:01] LABS: BASOPHILS % (AUTO) 0.6 % (0-1); EOSINOPHILS # (AUTO) 0.1 X10'3 (0-0.9); EOSINOPHILS % (AUTO) 2.1 % (0-6); HEMATOCRIT 37.3 % (35.0-45.0); HEMOGLOBIN 12.5 g/dl (12.0-16.0); LYMPHOCYTES # (AUTO) 1.5 X10'3 (1.1-4.8); LYMPHOCYTES % (AUTO) 24.5 % (21-51); MEAN CORPUSCULAR HEMOGLOBIN 27.2 PG (27.0-31.0); MEAN CORPUSCULAR HGB CONC 33.4 g/dL (33.0-36.5); MEAN CORPUSCULAR VOLUME 81.3 FL (78-98); MEAN PLATELET VOLUME 8.5 FL (7.4-10.4); MONOCYTES # (AUTO) 0.8 X10'3 (0-0.9); MONOCYTES % (AUTO) 12.1 % (2-12); NEUTROPHILS # (AUTO) 3.8 X10'3 (1.8-7.7); NEUTROPHILS % (AUTO) 60.7 % (42-75); PLATELET COUNT 247 X10'3 (140-440); RED BLOOD COUNT 4.58 X10'6 (4.20-5.60); RED CELL DISTRIBUTION WIDTH 14.2 % (11.5-14.5); WHITE BLOOD COUNT 6.2 X10'3 (4.5-11.0)
[2021-12-07] MEDS: K and/or MAG REPLACEMENT MC SCH (08:00)
[2021-12-07] MEDS: docusate sod 100mg capsule PO SCH (08:00)
[2021-12-07] MEDS: lisinopril 2.5mg tablet PO SCH (08:09)
[2021-12-07] MEDS: Neutra Phos packet PO SCH ×2 (08:11→12:58)
[2021-12-07] MEDS: enoxaparin 40mg/0.4ml syringe SUBCUT SCH (08:12)
[2021-12-07 08:17] VITALS: BP 146/93
[2021-12-07 08:42] LABS: ALANINE AMINOTRANSFERASE 16 U/L (12-78); ASPARTATE AMINO TRANSFERASE 19 U/L (10-37); BILIRUBIN,TOTAL 0.4 MG/DL (0.1-1.0); BLOOD UREA NITROGEN 8 MG/DL (7-18); BUN/CREATININE RATIO 20.5 (6.6-38.0); CREATININE 0.39 MG/DL (0.40-0.90); GLUCOSE 310 MG/DL (70-104); PHOSPHORUS 2.6 MG/DL (2.3-4.5); eGFR > 90 ML/MIN
[2021-12-07 08:45] LABS: CALCIUM 8.2 MG/DL (8.5-10.1); TOTAL CARBON DIOXIDE 21.4 MMOL/L (24-32)
[2021-12-07 08:46] LABS: ALBUMIN 2.2 G/DL (3.4-5.0); ALBUMIN/GLOBULIN RATIO 0.5 (1.1-1.5); ALKALINE PHOSPHATASE 96 IU/L (46-116); TOTAL PROTEIN 6.7 G/DL (6.4-8.2)
[2021-12-07] MEDS: insulin Lispro (HumaLOG) vial - multi-dose SQ SCH ×2 (08:55→13:21)
[2021-12-07] MEDS ORDERED: LISI2.5T14 PO (10:23)
[2021-12-07] MEDS ORDERED: METO50TA16 PO (10:23)
--- NOTE | 2021-12-07 10:53 | NUR ---
PAGER ID: [phone] MESSAGE: [id number], Jorge Luis can i get annemarie peardoc for this patient? she is getting beliaittlizzien but it is not helping thanks, elodia [phone]
[2021-12-07] MEDS ORDERED: AMOX-419 PO (12:15)
--- NOTE | 2021-12-07 12:31 | NUR ---
Case management to call [facility] transport for patient as she lives in a [facility] residence and uses them for transport
--- NOTE | 2021-12-07 12:59 | NUR ---
PAGER ID: [phone] MESSAGE: [id number], Jorge Luis, patient is telling me you said she is going home but then told her you were going to contact the surgeon about her gallbladder? there are dc orders am i to discharge her or not? elodia [phone]
--- NOTE | 2021-12-07 13:23 | NUR ---
Discharge instructions given to patient. Patient was made aware of need to follow up with Dr. Durham and i provided her with his number. Patient had medications sent to [facility] on [address] and [facility] is to come transport her to [facility] and to home. Educated patient on importance of monitoring blood sugars and using her insulin at home.
--- NOTE | 2021-12-07 14:51 | NUR ---
[facility] [employer] called, bellman driver is coming on shift now and will be here shortly.
--- NOTE | 2021-12-07 15:25 | NUR ---
Patient discharged to home in stable condition via [facility]. Arrangements made for patient to stop at [facility] to waste picker prescriptions for home. Patient was given discharge instructions and verbalized understanding.
== END 2021-12-07 16:43 | disposition home or self-care (01) | DRG 420 ==
LOC: ER 16:34 → ED HOLD 20:26 → EDBEDREQ 12-04 15:08 → PCU 3S 12-04 15:26 → ORTHO 4S 12-06 20:42
PROVIDERS: ADMIT Internal Medicine; ATTEND Internal Medicine
DX: E11.10 Type 2 diabetes mellitus with ketoacidosis without coma (principal); U07.1 COVID-19; K80.20 Calculus of gallbladder without cholecystitis without obstruction; E83.39 Other disorders of phosphorus metabolism; D75.1 Secondary polycythemia; E11.42 Type 2 diabetes mellitus with diabetic polyneuropathy; E86.0 Dehydration; E87.6 Hypokalemia; F41.9 Anxiety disorder, unspecified; G89.29 Other chronic pain; E87.5 Hyperkalemia; I10 Essential (primary) hypertension; Z78.9 Other specified health status; Z79.4 Long term (current) use of insulin; Z79.899 Other long term (current) drug therapy; Z88.5 Allergy status to narcotic agent; Z88.4 Allergy status to anesthetic agent
CPT/HCPCS: 36415; 36600; 71045; 76700; 80048; 80053; 81001; 82803; 82948; 83036; 83605; 83690; 83735; 83880; 84100; 84132; 84145; 84484; 84703; 85018; 85025; 85379; 86140; 87635; 93005; 96374; 99285; C9803; G0378; J0360; J1200; J1650; J1815; J2765; J3480; J3490; J7030

== ENCOUNTER 2022-07-26 19:01 | Emergency (ER) | payer MEDICAID ==
[~2022-07-26] VITALS: Ht 152.4 cm; Wt 110.7 kg
[~2022-07-26 19:01] MED LIST changes: -GABA-330 PO; -LACT1CAP26 PO; +LISI2.5T14 PO; -METF500T PO; +METO50TA16 PO; -SYRI-641 SQ; -TRIA15CR61 TP; -WOOL454C TP
[2022-07-26 19:11] VITALS: BP 168/112
[2022-07-26] MEDS ORDERED: ondansetron 4mg rapidly disintigrating tab PO ONE (21:05)
[2022-07-26 21:31] LABS: CLARITY,URINE SLIGHTLY CLOUDY (Clear); COLOR,URINE YELLOW (Yellow); GLUCOSE, URINE 100 mg/dl (Neg); KETONES,URINE >=80 mg/dl (Neg); LEUKOCYTE ESTERASE ,URINE TRACE (Neg); NITRITES, URINE NEGATIVE (Neg); OCCULT BLOOD,URINE NEGATIVE (Neg); PROTEIN,URINE NEGATIVE (Neg); UROBILINOGEN,URINE 0.2 E.U/dL (0.2-1.0)
[2022-07-26 21:43] LABS: BASOPHILS # (AUTO) 0.1 X10'3 (0-0.2); BASOPHILS % (AUTO) 0.7 % (0-1); EOSINOPHILS # (AUTO) 0.1 X10'3 (0-0.9); EOSINOPHILS % (AUTO) 0.5 % (0-6); HEMATOCRIT 39.6 % (35.0-45.0); LYMPHOCYTES # (AUTO) 2.7 X10'3 (1.1-4.8); LYMPHOCYTES % (AUTO) 15.8 % (21-51); MEAN CORPUSCULAR HGB CONC 32.8 g/dL (33.0-36.5); MEAN CORPUSCULAR VOLUME 79.3 FL (78-98); MEAN PLATELET VOLUME 7.4 FL (7.4-10.4); MONOCYTES # (AUTO) 0.8 X10'3 (0-0.9); MONOCYTES % (AUTO) 4.8 % (2-12); NEUTROPHILS # (AUTO) 13.5 X10'3 (1.8-7.7); NEUTROPHILS % (AUTO) 78.2 % (42-75); PLATELET COUNT 381 X10'3 (140-440); RED BLOOD COUNT 4.99 X10'6 (4.20-5.60); RED CELL DISTRIBUTION WIDTH 14.5 % (11.5-14.5); WHITE BLOOD COUNT 17.3 X10'3 (4.5-11.0)
[2022-07-26 21:44] LABS: BACTERIA,URINE 1+ /HPF (Neg); MUCUS STRANDS MANY /LPF (Neg); RBC,URINE NONE SEEN /HPF (0-2); SQUAMOUS EPITHELIAL CELL,UR MANY /LPF (FEW); UA COLLECTION TYPE VOIDED; WBC,URINE 20-30 /HPF (0-4)
[2022-07-26 21:48] LABS: ALANINE AMINOTRANSFERASE 29 U/L (12-78); ALBUMIN 3.1 G/DL (3.4-5.0); ALBUMIN/GLOBULIN RATIO 0.7 (1.1-1.5); ALKALINE PHOSPHATASE 110 IU/L (46-116); ANION GAP 7 (8-16); ASPARTATE AMINO TRANSFERASE 13 U/L (10-37); BILIRUBIN,TOTAL 0.3 MG/DL (0.1-1.0); BLOOD UREA NITROGEN 12 MG/DL (7-18); BUN/CREATININE RATIO 17.4 (6.6-38.0); CHLORIDE 102 MMOL/L (99-107); CREATININE 0.69 MG/DL (0.40-0.90); GLUCOSE 218 MG/DL (70-104); SODIUM 136 MMOL/L (135-145); TOTAL CARBON DIOXIDE 27.2 MMOL/L (24-32); TOTAL PROTEIN 7.6 G/DL (6.4-8.2); eGFR 90 ML/MIN
[2022-07-26] MEDS ORDERED: cephalexin 500mg capsule PO ONE (22:00)
[2022-07-26] MEDS ORDERED: CEPH500C82 PO (22:19)
[2022-07-26] MEDS ORDERED: INSU100I75 SQ (22:19)
[2022-07-26] MEDS ORDERED: HUM7525 SQ (22:19)
[2022-07-26] MEDS ORDERED: insulin glargine (Lantus) pen - multi-dose SQ ONE (22:30)
[2022-07-26] MEDS ORDERED: insulin Lispro (HumaLOG) vial - multi-dose SQ ONE ×2 (22:30→23:35)
== END 2022-07-27 01:29 | disposition home or self-care (01) ==
LOC: ER 19:02
DX: N30.00 Acute cystitis without hematuria (principal); E11.65 Type 2 diabetes mellitus with hyperglycemia; I10 Essential (primary) hypertension; Z86.14 Personal history of Methicillin resistant Staphylococcus aureus infection; F41.9 Anxiety disorder, unspecified; Z87.448 Personal history of other diseases of urinary system; Z88.5 Allergy status to narcotic agent; Z79.899 Other long term (current) drug therapy; Z79.1 Long term (current) use of non-steroidal anti-inflammatories (NSAID); Z79.2 Long term (current) use of antibiotics
CPT/HCPCS: 36415; 80053; 81001; 82948; 85025; 99283; J1815

== ENCOUNTER 2023-04-26 15:22 | Emergency (ER) | payer MEDICAID ==
[~2023-04-26] VITALS: Ht 152.4 cm; Wt 120.8 kg
[~2023-04-26 15:22] MED LIST changes: +HUM7525 SQ; +INSU100I75 SQ
[2023-04-26 15:30] VITALS: BP 174/79; PULSE 109; RESP 16; TEMP 97.8; O2SAT 99
[2023-04-26] MEDS ORDERED: SULF1TAB49 PO (17:27)
[2023-04-26 17:38] LABS: BASOPHILS # (AUTO) 0.2 X10'3 (0-0.2); BASOPHILS % (AUTO) 1.2 % (0-1); EOSINOPHILS # (AUTO) 0.8 X10'3 (0-0.9); EOSINOPHILS % (AUTO) 6.1 % (0-6); HEMATOCRIT 42.3 % (35.0-45.0); HEMOGLOBIN 13.9 g/dl (12.0-16.0); LYMPHOCYTES # (AUTO) 3.8 X10'3 (1.1-4.8); LYMPHOCYTES % (AUTO) 30.2 % (21-51); MEAN CORPUSCULAR HEMOGLOBIN 25.9 PG (27.0-31.0); MEAN CORPUSCULAR HGB CONC 32.8 g/dL (33.0-36.5); MEAN CORPUSCULAR VOLUME 79.1 FL (78-98); MEAN PLATELET VOLUME 7.7 FL (7.4-10.4); MONOCYTES # (AUTO) 0.6 X10'3 (0-0.9); MONOCYTES % (AUTO) 4.6 % (2-12); NEUTROPHILS # (AUTO) 7.3 X10'3 (1.8-7.7); NEUTROPHILS % (AUTO) 57.9 % (42-75); PLATELET COUNT 365 X10'3 (140-440); RED BLOOD COUNT 5.35 X10'6 (4.20-5.60); WHITE BLOOD COUNT 12.7 X10'3 (4.5-11.0)
[2023-04-26 17:49] LABS: ALANINE AMINOTRANSFERASE 26 U/L (12-78); ALBUMIN 3.4 G/DL (3.4-5.0); ALBUMIN/GLOBULIN RATIO 0.8 (1.1-1.5); ALKALINE PHOSPHATASE 116 IU/L (46-116); ANION GAP 12 (8-16); ASPARTATE AMINO TRANSFERASE 15 U/L (10-37); BILIRUBIN,TOTAL 0.3 MG/DL (0.1-1.0); BLOOD UREA NITROGEN 16 MG/DL (7-18); BUN/CREATININE RATIO 23.9 (10.0-20.0); CALCIUM 9.3 MG/DL (8.5-10.1); CHLORIDE 99 MMOL/L (99-107); CREATININE 0.67 MG/DL (0.40-0.90); GLUCOSE 194 MG/DL (70-104); POTASSIUM 3.8 MMOL/L (3.5-5.1); SODIUM 137 MMOL/L (135-145); TOTAL CARBON DIOXIDE 26.2 MMOL/L (24-32); TOTAL PROTEIN 7.9 G/DL (6.4-8.2); eGFR > 90 ML/MIN
[2023-04-26 17:51] LABS: APTT 31 SECONDS (22-32)
== END 2023-04-26 17:43 | disposition home or self-care (01) ==
LOC: ER 15:23
DX: L03.116 Cellulitis of left lower limb (principal); I10 Essential (primary) hypertension; F41.9 Anxiety disorder, unspecified; E11.9 Type 2 diabetes mellitus without complications; Z86.14 Personal history of Methicillin resistant Staphylococcus aureus infection; Z88.5 Allergy status to narcotic agent; Z79.899 Other long term (current) drug therapy; Z79.1 Long term (current) use of non-steroidal anti-inflammatories (NSAID); Z79.84 Long term (current) use of oral hypoglycemic drugs
CPT/HCPCS: 36415; 80053; 85025; 85610; 85730; 93971; 99284

== ENCOUNTER 2023-05-11 17:35 | Inpatient (IN) | payer MEDICAID ==
[~2023-05-11] VITALS: Ht 152.4 cm; Wt 125.9 kg
[2023-05-11 21:00] LABS: BASOPHILS # (AUTO) 0.1 X10'3 (0-0.2); BASOPHILS % (AUTO) 0.7 % (0-1); EOSINOPHILS # (AUTO) 0.9 X10'3 (0-0.9); EOSINOPHILS % (AUTO) 6.8 % (0-6); HEMATOCRIT 39.6 % (35.0-45.0); HEMOGLOBIN 13.2 g/dl (12.0-16.0); LYMPHOCYTES # (AUTO) 3.4 X10'3 (1.1-4.8); LYMPHOCYTES % (AUTO) 26.7 % (21-51); MEAN CORPUSCULAR HEMOGLOBIN 26.3 PG (27.0-31.0); MEAN CORPUSCULAR HGB CONC 33.3 g/dL (33.0-36.5); MEAN CORPUSCULAR VOLUME 79.2 FL (78-98); MEAN PLATELET VOLUME 7.1 FL (7.4-10.4); MONOCYTES # (AUTO) 0.6 X10'3 (0-0.9); MONOCYTES % (AUTO) 4.3 % (2-12); NEUTROPHILS # (AUTO) 7.8 X10'3 (1.8-7.7); NEUTROPHILS % (AUTO) 61.5 % (42-75); PLATELET COUNT 357 X10'3 (140-440); RED CELL DISTRIBUTION WIDTH 15.7 % (11.5-14.5); WHITE BLOOD COUNT 12.8 X10'3 (4.5-11.0)
[2023-05-11 21:12] LABS: ALANINE AMINOTRANSFERASE 33 U/L (12-78); ALBUMIN 3.3 G/DL (3.4-5.0); ALBUMIN/GLOBULIN RATIO 0.7 (1.1-1.5); ALKALINE PHOSPHATASE 113 IU/L (46-116); ANION GAP 10 (8-16); ASPARTATE AMINO TRANSFERASE 19 U/L (10-37); BILIRUBIN,TOTAL 0.3 MG/DL (0.1-1.0); BLOOD UREA NITROGEN 13 MG/DL (7-18); CALCIUM 9.2 MG/DL (8.5-10.1); CHLORIDE 101 MMOL/L (99-107); CREATININE 0.65 MG/DL (0.40-0.90); GLUCOSE 96 MG/DL (70-104); SODIUM 137 MMOL/L (135-145); TOTAL CARBON DIOXIDE 26.2 MMOL/L (24-32); TOTAL PROTEIN 7.9 G/DL (6.4-8.2); eGFR > 90 ML/MIN
[2023-05-12] MEDS ORDERED: normal saline 1000ml 1,000 ML IV ONE (03:15)
[2023-05-12] MEDS ORDERED: iohexol 300mg/ml 100ml inj. ONE (04:02)
[2023-05-12 04:17] LABS: D-DIMER 0.68 MG/L FEU (0-0.50)
[2023-05-12] MEDS ORDERED: piperacillin/tazo 3.375gm/50ml 50 ML IV ONE (04:55)
[2023-05-12] MEDS ORDERED: vancomycin/NS 1 GM ADD-VANTAGE 250 ML IV ONE (04:55)
[2023-05-12] MEDS ORDERED: bisacodyl 10mg suppository rectal RC PRN (05:10)
[2023-05-12] MEDS ORDERED: acetaminophen 325mg tablet PO PRN (05:10)
[2023-05-12] MEDS ORDERED: mag hydrox/Alum hydrox/simeth 30ml oral suspension PO PRN (05:10)
[2023-05-12] MEDS ORDERED: ondansetron/PF 4mg/2ml inj IV PRN (05:10)
[2023-05-12] MEDS ORDERED: ondansetron 4mg rapidly disintigrating tab PO PRN (05:10)
[2023-05-12] MEDS ORDERED: diphenhydrAMINE 50 mg/ml inj IV PRN (05:10)
[2023-05-12] MEDS ORDERED: diphenhydrAMINE 25mg capsule PO PRN (05:10)
[2023-05-12] MEDS ORDERED: magnesium hydroxide 30ml (MOM) UD suspension PO PRN (05:10)
[2023-05-12] MEDS ORDERED: MESSAGE TO PHARMACY PO ONE (05:15)
[2023-05-12] MEDS ORDERED: glucagon, human recombinant 1mg kit SUBCUT PRN (05:15)
[2023-05-12] MEDS ORDERED: hydrALAZINE 20mg/ml inj. IV PRN (05:15)
[2023-05-12] MEDS ORDERED: dextrose 50%-water 50ml dispensing syringe IV PRN ×2 (05:15)
[2023-05-12] MEDS ORDERED: DEXTROSE 15 GM of carb/4 tabs (each vial/BOTTLE has 4 tablets) PO PRN ×2 (05:15)
[2023-05-12 05:52] LABS: URINE AMPHETAMINE SCREEN NEGATIVE (Neg); URINE BARBITUATE SCREEN NEGATIVE (Neg); URINE BENZODIAZEPINES SCREEN NEGATIVE (Neg); URINE CANNABINOID SCREEN NEGATIVE (Neg); URINE COCAINE SCREEN NEGATIVE (Neg); URINE METHADONE SCREEN NEGATIVE (Neg); URINE OPIATE SCREEN NEGATIVE (Neg); URINE PHENCYCLIDINE SCREEN NEGATIVE (Neg)
[2023-05-12] MEDS: normal saline 1000ml 1,000 ML IV SCH ×2 (06:25→16:11)
[2023-05-12] MEDS: pantoprazole 40mg Tablet.DR PO SCH (07:30)
[2023-05-12 07:48] LABS: APTT 32 SECONDS (22-32); MAGNESIUM 2.2 MG/DL (1.5-2.4); PHOSPHORUS 3.7 MG/DL (2.3-4.5)
[2023-05-12] MEDS: heparin, porcine 5000 units/ml vial SQ SCH ×2 (08:00→16:11)
[2023-05-12] MEDS: docusate sod 100mg capsule PO SCH ×2 (08:00→20:45)
[2023-05-12] MEDS ORDERED: vancomycin/NS 1 GM ADD-VANTAGE 250 ML IV SCH (08:00)
--- NOTE | 2023-05-12 08:31 | NUR ---
Attempted to call report to [id number] nurse, Catalino WARE, not available to receive report, in the middle of med pass.
[2023-05-12 08:34] LABS: HEMOGLOBIN A1C 9.3 % (4.5-6.2)
[2023-05-12 09:35] VITALS: BP 135/74; PULSE 102; RESP 18; TEMP 97.9; O2SAT 100
[2023-05-12] MEDS ORDERED: magnesium 4gm in 100ml NS 100 ML IV PRN (09:55)
[2023-05-12] MEDS ORDERED: magnesium Cl slow-release 64mg tablet PO PRN (09:55)
[2023-05-12] MEDS ORDERED: magnesium 2GM in 50ml NS 50 ML IV PRN (09:55)
[2023-05-12] MEDS ORDERED: potassium Cl 40MEQ/1/2NS 520ml 520 ML IV PRN (09:55)
[2023-05-12] MEDS ORDERED: potassium Cl 20 mEq SR tablet PO PRN ×2 (09:55)
[2023-05-12] MEDS: diphenhydrAMINE 25mg capsule PO SCH (10:00)
[2023-05-12 10:43] LABS: CHOL/HDL RATIO 4.9 (0.00-4.99); CHOLESTEROL 206 MG/DL (0-200); HDL CHOLESTEROL 42 MG/DL (35-60); LDL CHOLESTEROL 113 MG/DL (50-100); TRIGLYCERIDES 313 MG/DL (20-135)
--- NOTE | 2023-05-12 11:38 | NUR ---
DM consult: Per EMR pt with T2DM, current A1c 9.3% which is down from 11.6% 12/05/21. Per EMR pt with Lantus and NovoLog on home med list. Pt just admitted to the floor today per EMR. Pt would benefit from DM education as able, currently deferred at this time d/t short staffing. Will continue to follow and provide DM education as able. Addendum: 05/12/23 at [address] Amended: Links added.
[2023-05-12] MEDS: piperacillin/tazo 4.5gm/100ml 100 ML IV SCH ×2 (13:11→20:47)
[2023-05-12] MEDS: insulin Lispro (HumaLOG) vial - multi-dose SQ SCH ×2 (13:50→18:35)
--- NOTE | 2023-05-12 14:22 | NUR ---
PRESSURE ULCER EDUCATION: DEFINITION: A pressure ulcer is an area of skin that breaks down when you stay in one position too long. The constant pressure against the skin reduces the blood flow to that area and the affected tissue dies. CAUSES: "Being bedridden or in a wheelchair "Fragile skin "Having a chronic condition, such as diabetes or vascular disease "Inability to move certain parts of your body without assistance "Older age "Incontinence of urine or stool SYMPTOMS: "A reddened area that DOES NOT turn white when pressed on - this can be the beginning of a pressure ulcer "A blister, deep sore or a crater - these can be advanced pressure ulcers FIRST AID: "Relieve the pressure on this area "Keep the area clean and dry "Call your primary doctor if you see any of the above symptoms "DO NOT massage the area "DO NOT use a donut shaped or ring shaped pillow- these actually interfere with the blood flow and cause complications PREVENTION: "Check for pressure ulcers everyday "Change position at least every two hours to relieve pressure "Use items that help relieve pressure- pillows, sheepskin, foam padding, and powders. "Keep skin clean and dry "Eat healthy well balanced meals "Exercise daily IF YOU SEE ANY OF THESE SYMPTOMS WHILE IN THE HOSPITAL - TELL YOUR NURSE IMMEDIATELY. IF YOU SEE ANY OF THESE SYMPTOMS WHILE AT HOME OR HAVE ANY QUESTIONS OR CONCERNS ABOUT PRESSURE ULCERS - CALL YOUR PRIMARY DOCTOR IMMEDIATELY. Addendum: 05/12/23 at 1422 by Monalisa Doshi RN Amended: Links added.
[2023-05-12] MEDS: VANCOmycin 1250MG/NS 250ml Bag 250 ML IV SCH (16:53)
[2023-05-12 18:00] VITALS: BP 128/86; PULSE 110; RESP 18; TEMP 98.3; O2SAT 100
--- NOTE | 2023-05-12 18:00 | NUR ---
I have reviewed and agree with interventions, assessments, and documentation by Catalino Delgado LVN.
[2023-05-12] MEDS: hydrocortisone 1% cream 28gm TP SCH (20:00)
[2023-05-12] MEDS: K and/or MAG REPLACEMENT MC SCH (20:00)
[2023-05-12] MEDS ORDERED: insulin glargine (Lantus) pen - multi-dose SQ SCH (21:00)
[2023-05-12] MEDS ORDERED: temazepam 15mg capsule PO PRN (21:00)
[2023-05-12 22:00] VITALS: BP 112/73; PULSE 100; RESP 16; TEMP 98.3; O2SAT 100
--- NOTE | 2023-05-13 03:00 | NUR ---
Patient in room ORTHO 4015. I have received report from Gia RN and had the opportunity to ask questions and assume patient care.
[2023-05-13] MEDS: VANCOmycin 1250MG/NS 250ml Bag 250 ML IV SCH ×2 (05:00→17:06)
[2023-05-13 06:00] VITALS: BP 105/60; PULSE 108; RESP 18; TEMP 98.1; O2SAT 96
--- NOTE | 2023-05-13 06:00 | NUR ---
Patient mom Haydee called and wanted an update/ plan. I called Haydee back and no answer. I LMOM stating that patient is resting in bed and no updates/plans at this time. I advised that she call back later in the morning and day nurse may have an update at that time or she is welcomed to visit during visiting hours. Notified day nurse of this.
--- NOTE | 2023-05-13 06:00 | NUR ---
Problems reprioritized. Patient report given, questions answered & plan of care reviewed with Nichole DONNELLY.
[2023-05-13 06:48] LABS: BASOPHILS # (AUTO) 0.1 X10'3 (0-0.2); BASOPHILS % (AUTO) 0.8 % (0-1); EOSINOPHILS # (AUTO) 0.6 X10'3 (0-0.9); EOSINOPHILS % (AUTO) 6.7 % (0-6); HEMATOCRIT 35.5 % (35.0-45.0); HEMOGLOBIN 11.6 g/dl (12.0-16.0); LYMPHOCYTES # (AUTO) 2.4 X10'3 (1.1-4.8); MEAN CORPUSCULAR HEMOGLOBIN 26.4 PG (27.0-31.0); MEAN CORPUSCULAR HGB CONC 32.7 g/dL (33.0-36.5); MEAN CORPUSCULAR VOLUME 80.8 FL (78-98); MEAN PLATELET VOLUME 7.6 FL (7.4-10.4); MONOCYTES # (AUTO) 0.5 X10'3 (0-0.9); MONOCYTES % (AUTO) 5.9 % (2-12); NEUTROPHILS # (AUTO) 5.3 X10'3 (1.8-7.7); NEUTROPHILS % (AUTO) 59.6 % (42-75); PLATELET COUNT 310 X10'3 (140-440); RED BLOOD COUNT 4.39 X10'6 (4.20-5.60); RED CELL DISTRIBUTION WIDTH 15.7 % (11.5-14.5); WHITE BLOOD COUNT 8.9 X10'3 (4.5-11.0)
--- NOTE | 2023-05-13 07:06 | NUR ---
UPTWISTER TENDER documentation: I have reviewed and agree with all interventions, assessments performed and documented by Catalino.
[2023-05-13 07:07] LABS: ALANINE AMINOTRANSFERASE 36 U/L (12-78); ALBUMIN 2.7 G/DL (3.4-5.0); ALBUMIN/GLOBULIN RATIO 0.7 (1.1-1.5); ALKALINE PHOSPHATASE 106 IU/L (46-116); ANION GAP 10 (8-16); ASPARTATE AMINO TRANSFERASE 25 U/L (10-37); BILIRUBIN,TOTAL 0.3 MG/DL (0.1-1.0); BLOOD UREA NITROGEN 12 MG/DL (7-18); BUN/CREATININE RATIO 17.1 (10.0-20.0); CALCIUM 8.4 MG/DL (8.5-10.1); CHLORIDE 105 MMOL/L (99-107); CHOL/HDL RATIO 4.5 (0.00-4.99); CHOLESTEROL 190 MG/DL (0-200); GLUCOSE 185 MG/DL (70-104); HDL CHOLESTEROL 42 MG/DL (35-60); LDL CHOLESTEROL 105 MG/DL (50-100); MAGNESIUM 2.2 MG/DL (1.5-2.4); POTASSIUM 4.5 MMOL/L (3.5-5.1); SODIUM 138 MMOL/L (135-145); TOTAL PROTEIN 6.5 G/DL (6.4-8.2); TRIGLYCERIDES 217 MG/DL (20-135); eGFR 88 ML/MIN
[2023-05-13] MEDS: piperacillin/tazo 4.5gm/100ml 100 ML IV SCH ×3 (07:49→19:33)
[2023-05-13 08:00] VITALS: RESP 18; O2SAT 99
[2023-05-13] MEDS: K and/or MAG REPLACEMENT MC SCH ×2 (08:00→19:04)
[2023-05-13 10:00] VITALS: BP 135/84; PULSE 99; RESP 18; TEMP 99.1; O2SAT 96
[2023-05-13] MEDS: diphenhydrAMINE 25mg capsule PO SCH (10:00)
[2023-05-13] MEDS: pantoprazole 40mg Tablet.DR PO SCH (10:00)
[2023-05-13] MEDS: docusate sod 100mg capsule PO SCH ×2 (10:01→19:03)
[2023-05-13] MEDS: heparin, porcine 5000 units/ml vial SQ SCH ×4 (10:03→23:19)
[2023-05-13] MEDS: insulin Lispro (HumaLOG) vial - multi-dose SQ SCH ×3 (10:10→19:02)
[2023-05-13] MEDS: hydrocortisone 1% cream 28gm TP SCH ×3 (10:17→23:24)
[2023-05-13] MEDS: normal saline 1000ml 1,000 ML IV SCH ×3 (10:19→21:17)
--- NOTE | 2023-05-13 15:31 | NUR ---
F/u for DM consult: Pt seen at bedside for written and verbal DM education. Pt states she knows what needs to be done to manage her diabetes though states she has decreased her PO intake and has been administering only half of her insulin rx to achieve weight loss and improve wound healing. Pt states she lives in a room and board facility where meals are prepared for her. RD encouraged pt to eat more consistently and take her medications per rx and educated pt on more appropriate ways to assist with weight loss and wound healing. Pt verbalized understanding. All of patient's questions were answered at this time. RD contact information provided and pt encouraged to reach out if needed. Pt endorses a good appetite which is evident with documented 100% PO intake of meals. Pt agrees to double protein with meals for satiety, d/w dietary. Will continue to follow. Addendum: 05/13/23 at [address] Amended: Links added.
--- NOTE | 2023-05-13 15:36 | NUR ---
BOAT DISPATCHER documentation: I have reviewed and agree with all interventions, assessments performed and documented by Jannie Mancilla LVN.
[2023-05-13 18:00] VITALS: BP 101/48; PULSE 99; RESP 16; TEMP 97.6; O2SAT 100
[2023-05-13] MEDS: losartan 50mg tablet PO SCH (18:15)
[2023-05-13 20:00] VITALS: RESP 16; O2SAT 99
[2023-05-13] MEDS: insulin glargine (Lantus) pen - multi-dose SQ SCH (21:15)
[2023-05-13 22:00] VITALS: BP 123/63; PULSE 90; RESP 16; TEMP 98.4; O2SAT 98
[2023-05-14] MEDS: normal saline 1000ml 1,000 ML IV SCH ×2 (03:49→14:35)
[2023-05-14] MEDS: piperacillin/tazo 4.5gm/100ml 100 ML IV SCH ×3 (03:49→20:30)
[2023-05-14] MEDS ORDERED: VANCOMYCIN LEVEL IV ONE ×3 (04:30→16:30)
[2023-05-14] MEDS: VANCOmycin 1250MG/NS 250ml Bag 250 ML IV SCH ×2 (05:53→16:58)
--- NOTE | 2023-05-14 06:22 | NUR ---
Problems reprioritized. Patient report given, questions answered & plan of care reviewed with Alina WARE. Addendum: 05/14/23 at 0622 by Krystin Mckay RN Amended: Links added.
[2023-05-14 06:42] LABS: BASOPHILS # (AUTO) 0.1 X10'3 (0-0.2); BASOPHILS % (AUTO) 0.7 % (0-1); EOSINOPHILS # (AUTO) 0.7 X10'3 (0-0.9); EOSINOPHILS % (AUTO) 7.2 % (0-6); HEMATOCRIT 35.1 % (35.0-45.0); HEMOGLOBIN 11.3 g/dl (12.0-16.0); LYMPHOCYTES # (AUTO) 2.3 X10'3 (1.1-4.8); LYMPHOCYTES % (AUTO) 24.8 % (21-51); MEAN CORPUSCULAR HGB CONC 32.3 g/dL (33.0-36.5); MEAN CORPUSCULAR VOLUME 80.4 FL (78-98); MEAN PLATELET VOLUME 7.5 FL (7.4-10.4); MONOCYTES # (AUTO) 0.5 X10'3 (0-0.9); MONOCYTES % (AUTO) 5.6 % (2-12); NEUTROPHILS # (AUTO) 5.8 X10'3 (1.8-7.7); NEUTROPHILS % (AUTO) 61.7 % (42-75); PLATELET COUNT 312 X10'3 (140-440); RED BLOOD COUNT 4.36 X10'6 (4.20-5.60); RED CELL DISTRIBUTION WIDTH 15.8 % (11.5-14.5); WHITE BLOOD COUNT 9.4 X10'3 (4.5-11.0)
[2023-05-14 06:49] LABS: ALANINE AMINOTRANSFERASE 30 U/L (12-78); ALBUMIN 2.7 G/DL (3.4-5.0); ALBUMIN/GLOBULIN RATIO 0.7 (1.1-1.5); ALKALINE PHOSPHATASE 99 IU/L (46-116); ANION GAP 8 (8-16); ASPARTATE AMINO TRANSFERASE 16 U/L (10-37); BILIRUBIN,TOTAL 0.3 MG/DL (0.1-1.0); BLOOD UREA NITROGEN 13 MG/DL (7-18); BUN/CREATININE RATIO 17.8 (10.0-20.0); CALCIUM 8.4 MG/DL (8.5-10.1); CHLORIDE 106 MMOL/L (99-107); CREATININE 0.73 MG/DL (0.40-0.90); GLUCOSE 120 MG/DL (70-104); SODIUM 140 MMOL/L (135-145); TOTAL CARBON DIOXIDE 25.9 MMOL/L (24-32); TOTAL PROTEIN 6.4 G/DL (6.4-8.2); eGFR 84 ML/MIN
[2023-05-14 06:51] LABS: MAGNESIUM 2.1 MG/DL (1.5-2.4); VANCOMYCIN,TROUGH 14.1 UG/ML (6.0-14.0)
[2023-05-14 07:13] VITALS: BP 112/60; PULSE 102; RESP 17; TEMP 98.1; O2SAT 96
[2023-05-14] MEDS: K and/or MAG REPLACEMENT MC SCH ×2 (08:00→20:00)
[2023-05-14] MEDS: atorvastatin 20mg tablet PO SCH (08:00)
[2023-05-14] MEDS: losartan 50mg tablet PO SCH (08:00)
[2023-05-14 08:15] VITALS: RESP 16
[2023-05-14] MEDS: insulin Lispro (HumaLOG) vial - multi-dose SQ SCH ×2 (09:40→21:38)
[2023-05-14] MEDS: heparin, porcine 5000 units/ml vial SQ SCH ×2 (09:43→16:00)
[2023-05-14] MEDS: pantoprazole 40mg Tablet.DR PO SCH (09:44)
[2023-05-14] MEDS: docusate sod 100mg capsule PO SCH ×2 (09:44→20:00)
[2023-05-14] MEDS: diphenhydrAMINE 25mg capsule PO SCH (09:46)
[2023-05-14] MEDS: hydrocortisone 1% cream 28gm TP SCH ×2 (09:50→20:39)
[2023-05-14 10:00] VITALS: BP 148/81; PULSE 96; RESP 18; TEMP 98.4; O2SAT 100
[2023-05-14] MEDS ORDERED: diatrozoate meglu/diatrozoate sod (37% iodine) 120ML oral solution PO SCH (13:25)
[2023-05-14] MEDS: diatr meglu/diatrizoate 30ml oral sol.-(3 dose) bottle PO SCH ×3 (14:35→19:16)
--- NOTE | 2023-05-14 16:02 | NUR ---
Dr Anthony aware CT won't be able to do patients CT until after 1900 tonight due to the frequency of dosage of contrast. Per Dr Anthony please call CT and see if we can do Q45 min doses to get scan done sooner. Desmond with CT will call Dr Anthony
[2023-05-14 18:00] VITALS: BP 145/80; PULSE 90; RESP 16; TEMP 98.2; O2SAT 97
--- NOTE | 2023-05-14 18:39 | NUR ---
Problems reprioritized. Patient report given, questions answered & plan of care reviewed with Krystin WARE.
[2023-05-14 19:00] VITALS: RESP 16; O2SAT 97
[2023-05-14] MEDS: insulin glargine (Lantus) pen - multi-dose SQ SCH (21:40)
[2023-05-14 22:00] VITALS: BP 136/72; PULSE 79; RESP 16; TEMP 97.8; O2SAT 98
[2023-05-15] MEDS: heparin, porcine 5000 units/ml vial SQ SCH ×2 (00:13→07:11)
[2023-05-15] MEDS: normal saline 1000ml 1,000 ML IV SCH ×2 (02:52→13:10)
[2023-05-15] MEDS ORDERED: VANCOMYCIN 1,500MG in normal saline IV soln 300 ML IV SCH (05:00)
[2023-05-15 06:00] VITALS: BP 127/79; PULSE 98; RESP 18; TEMP 98.3; O2SAT 95
[2023-05-15 06:40] LABS: ALANINE AMINOTRANSFERASE 38 U/L (12-78); ALBUMIN 2.8 G/DL (3.4-5.0); ALBUMIN/GLOBULIN RATIO 0.7 (1.1-1.5); ALKALINE PHOSPHATASE 112 IU/L (46-116); ANION GAP 8 (8-16); ASPARTATE AMINO TRANSFERASE 20 U/L (10-37); BILIRUBIN,TOTAL 0.3 MG/DL (0.1-1.0); BLOOD UREA NITROGEN 12 MG/DL (7-18); BUN/CREATININE RATIO 16.7 (10.0-20.0); CALCIUM 8.4 MG/DL (8.5-10.1); CHLORIDE 104 MMOL/L (99-107); CREATININE 0.72 MG/DL (0.40-0.90); GLUCOSE 219 MG/DL (70-104); SODIUM 137 MMOL/L (135-145); TOTAL CARBON DIOXIDE 25.4 MMOL/L (24-32); TOTAL PROTEIN 6.8 G/DL (6.4-8.2); eGFR 85 ML/MIN
[2023-05-15 06:41] LABS: BASOPHILS # (AUTO) 0.1 X10'3 (0-0.2); BASOPHILS % (AUTO) 0.9 % (0-1); EOSINOPHILS # (AUTO) 0.5 X10'3 (0-0.9); LYMPHOCYTES # (AUTO) 2.5 X10'3 (1.1-4.8); LYMPHOCYTES % (AUTO) 31.5 % (21-51); MEAN CORPUSCULAR HEMOGLOBIN 25.8 PG (27.0-31.0); MEAN CORPUSCULAR HGB CONC 32.4 g/dL (33.0-36.5); MEAN CORPUSCULAR VOLUME 79.8 FL (78-98); MEAN PLATELET VOLUME 7.6 FL (7.4-10.4); MONOCYTES # (AUTO) 0.4 X10'3 (0-0.9); NEUTROPHILS # (AUTO) 4.5 X10'3 (1.8-7.7); NEUTROPHILS % (AUTO) 56.6 % (42-75); PLATELET COUNT 318 X10'3 (140-440); RED BLOOD COUNT 4.64 X10'6 (4.20-5.60); RED CELL DISTRIBUTION WIDTH 15.6 % (11.5-14.5)
[2023-05-15] MEDS: atorvastatin 20mg tablet PO SCH (07:10)
[2023-05-15] MEDS: piperacillin/tazo 4.5gm/100ml 100 ML IV SCH (07:10)
[2023-05-15] MEDS: docusate sod 100mg capsule PO SCH (07:11)
[2023-05-15] MEDS: diphenhydrAMINE 25mg capsule PO SCH (07:11)
[2023-05-15] MEDS: pantoprazole 40mg Tablet.DR PO SCH (07:12)
[2023-05-15] MEDS: losartan 50mg tablet PO SCH (07:12)
[2023-05-15] MEDS: hydrocortisone 1% cream 28gm TP SCH (07:21)
[2023-05-15 08:00] VITALS: RESP 14; O2SAT 95
[2023-05-15] MEDS: K and/or MAG REPLACEMENT MC SCH (08:00)
[2023-05-15] MEDS: insulin Lispro (HumaLOG) vial - multi-dose SQ SCH ×2 (09:45→14:11)
[2023-05-15 10:00] VITALS: BP 153/82; PULSE 92; RESP 18; TEMP 98.1; O2SAT 100
[2023-05-15] MEDS ORDERED: AMOX-580 PO (10:14)
[2023-05-15] MEDS ORDERED: ATOR20TA66 PO (10:14)
[2023-05-15] MEDS ORDERED: LOSA50TA64 PO (10:14)
[2023-05-15] MEDS ORDERED: PANT40TA54 PO (10:14)
--- NOTE | 2023-05-15 15:15 | NUR ---
Patient discharged in stable condition to home via cab. iv removed tip intact no complications. belongings sent with pt. pt educated on discharge instructions. pt stated " i am not taking the high cholesterol med or the high blood pressure med, i dont have high blood pressure or high cholesterol". More education provided.
[2023-05-16] MEDS ORDERED: VANCOMYCIN LEVEL IV ONE (16:30)
== END 2023-05-15 15:15 | disposition home or self-care (01) | DRG 383 ==
LOC: ER 17:36 → ED HOLD 05-12 05:10 → ORTHO 4S 05-12 09:35
PROVIDERS: ADMIT Family Medicine; ATTEND Family Medicine
DX: L03.116 Cellulitis of left lower limb (principal); E11.42 Type 2 diabetes mellitus with diabetic polyneuropathy; E11.51 Type 2 diabetes mellitus with diabetic peripheral angiopathy without gangrene; Z68.43 Body mass index [BMI] 50.0-59.9, adult; E78.5 Hyperlipidemia, unspecified; E11.65 Type 2 diabetes mellitus with hyperglycemia; E66.01 Morbid (severe) obesity due to excess calories; G89.4 Chronic pain syndrome; I10 Essential (primary) hypertension; F41.9 Anxiety disorder, unspecified; Z88.5 Allergy status to narcotic agent; Z88.4 Allergy status to anesthetic agent; Z79.899 Other long term (current) drug therapy; Z79.4 Long term (current) use of insulin; Z71.3 Dietary counseling and surveillance
CPT/HCPCS: 36415; 71045; 73701; 74176; 80053; 80061; 80202; 80305; 82948; 83036; 83605; 83735; 83880; 84100; 84145; 84439; 84443; 85025; 85379; 85610; 85730; 87040; 93971; 99285; A6250; G0378; J1644; J1815; J2543; J3370; J3490; J7030; J7040; Q0163; Q9963; Q9967

== ENCOUNTER 2024-02-19 12:01 | Inpatient (IN) | payer MEDICAID ==
[~2024-02-19] VITALS: Ht 152.4 cm; Wt 128.0 kg
[~2024-02-19 12:01] MED LIST changes: +ATOR20TA66 PO; +AYGESTIN PO; -HUM7525 SQ; -INSU100I75 SQ; -LISI2.5T14 PO; +LOSA50TA64 PO; -METO50TA16 PO; +PANT40TA54 PO
[2024-02-19 16:11] LABS: BASOPHILS # (AUTO) 0.1 X10'3 (0-0.2); BASOPHILS % (AUTO) 0.6 % (0-1); EOSINOPHILS # (AUTO) 0.7 X10'3 (0-0.9); EOSINOPHILS % (AUTO) 5.3 % (0-6); HEMATOCRIT 39.7 % (35.0-45.0); HEMOGLOBIN 12.7 g/dl (12.0-16.0); LYMPHOCYTES # (AUTO) 2.9 X10'3 (1.1-4.8); MEAN CORPUSCULAR HEMOGLOBIN 25.5 PG (27.0-31.0); MEAN CORPUSCULAR HGB CONC 32.1 g/dL (33.0-36.5); MEAN CORPUSCULAR VOLUME 79.3 FL (78-98); MEAN PLATELET VOLUME 7.4 FL (7.4-10.4); MONOCYTES # (AUTO) 0.6 X10'3 (0-0.9); MONOCYTES % (AUTO) 5.2 % (2-12); NEUTROPHILS # (AUTO) 7.9 X10'3 (1.8-7.7); NEUTROPHILS % (AUTO) 64.9 % (42-75); PLATELET COUNT 370 X10'3 (140-440); RED CELL DISTRIBUTION WIDTH 16.5 % (11.5-14.5); WHITE BLOOD COUNT 12.2 X10'3 (4.5-11.0)
[2024-02-19 16:19] LABS: APTT 29 SECONDS (22-32); INR 0.9 INR; PROTHROMBIN TIME 10.2 SECONDS (9.0-12.0)
[2024-02-19 16:34] LABS: ALANINE AMINOTRANSFERASE 23 U/L (12-78); ALBUMIN 3.3 G/DL (3.4-5.0); ALBUMIN/GLOBULIN RATIO 0.7 (1.1-1.5); ALKALINE PHOSPHATASE 111 IU/L (46-116); ANION GAP 8 (8-16); ASPARTATE AMINO TRANSFERASE 14 U/L (10-37); BILIRUBIN,TOTAL 0.4 MG/DL (0.1-1.0); BLOOD UREA NITROGEN 17 MG/DL (7-18); BUN/CREATININE RATIO 23.9 (10.0-20.0); C-REACTIVE PROTEIN 1.31 MG/DL (0.0-0.5); CALCIUM 8.6 MG/DL (8.5-10.1); CHLORIDE 103 MMOL/L (99-107); CREATININE 0.71 MG/DL (0.40-0.90); GLUCOSE 105 MG/DL (70-104); POTASSIUM 3.9 MMOL/L (3.5-5.1); SODIUM 139 MMOL/L (135-145); TOTAL CARBON DIOXIDE 28.5 MMOL/L (24-32); TOTAL PROTEIN 8.1 G/DL (6.4-8.2); eCRCL 66 ML/MIN; eGFR 86 ML/MIN
[2024-02-19] MEDS: CefTRIAXone/D5W-Rocephin 1gm 50 ML IV ONE (18:30)
[2024-02-19] MEDS ORDERED: acetaminophen 325mg tablet PO PRN ×2 (18:35)
[2024-02-19] MEDS ORDERED: potassium Cl 20 mEq SR tablet PO PRN ×2 (18:35)
[2024-02-19] MEDS ORDERED: HYDROcodone/acetaminophen 5mg/325mg tablet PO PRN (18:35)
[2024-02-19] MEDS ORDERED: potassium Cl 40MEQ/1/2NS 520ml 520 ML IV PRN (18:35)
[2024-02-19] MEDS ORDERED: mag hydrox/Alum hydrox/simeth 30ml oral suspension PO PRN (18:35)
[2024-02-19] MEDS ORDERED: magnesium 4gm in 100ml NS 100 ML IV PRN (18:35)
[2024-02-19] MEDS ORDERED: ondansetron/PF 4mg/2ml inj IV PRN (18:35)
[2024-02-19] MEDS ORDERED: magnesium 2GM in 50ml NS 50 ML IV PRN (18:35)
[2024-02-19] MEDS ORDERED: magnesium hydroxide 30ml (MOM) UD suspension PO PRN (18:35)
[2024-02-19] MEDS ORDERED: magnesium Cl slow-release 64mg tablet PO PRN (18:35)
[2024-02-19] MEDS: normal saline 1000ml 1,000 ML IV SCH (18:49)
[2024-02-19] MEDS ORDERED: DEXTROSE 15 GM of carb/4 tabs (each vial/BOTTLE has 4 tablets) PO PRN ×2 (18:50)
[2024-02-19] MEDS ORDERED: glucagon, human recombinant 1mg kit SUBCUT PRN (18:50)
[2024-02-19] MEDS ORDERED: dextrose 50%-water 50ml dispensing syringe IV PRN ×2 (18:50)
[2024-02-19 19:07] LABS: BILIRUBIN,URINE NEGATIVE (Neg); CLARITY,URINE CLEAR (Clear); COLOR,URINE YELLOW (Yellow); GLUCOSE, URINE NEGATIVE (Neg); KETONES,URINE NEGATIVE (Neg); LEUKOCYTE ESTERASE ,URINE NEGATIVE (Neg); NITRITES, URINE POSITIVE (Neg); OCCULT BLOOD,URINE MODERATE (Neg); PROTEIN,URINE NEGATIVE (Neg); UROBILINOGEN,URINE 0.2 E.U/dL (0.2-1.0)
[2024-02-19 19:08] LABS: UA COLLECTION TYPE CLN CATCH MIDSTREAM
[2024-02-19 19:15] LABS: BACTERIA,URINE 4+ /HPF (Neg); MUCUS STRANDS MODERATE /LPF (Neg); SQUAMOUS EPITHELIAL CELL,UR MANY /LPF (FEW)
[2024-02-19 19:25] LABS: URINE AMPHETAMINE SCREEN NEGATIVE (Neg); URINE BARBITUATE SCREEN NEGATIVE (Neg); URINE BENZODIAZEPINES SCREEN NEGATIVE (Neg); URINE CANNABINOID SCREEN NEGATIVE (Neg); URINE COCAINE SCREEN NEGATIVE (Neg); URINE METHADONE SCREEN NEGATIVE (Neg); URINE OPIATE SCREEN NEGATIVE (Neg); URINE PHENCYCLIDINE SCREEN NEGATIVE (Neg)
[2024-02-19] MEDS: enoxaparin 40mg/0.4ml syringe SQ SCH (20:00)
[2024-02-19] MEDS: K and/or MAG REPLACEMENT MC SCH (20:00)
[2024-02-19] MEDS: VANCOmycin 2,000MG in NS 500ml IV soln IV ONE (20:14)
[2024-02-19] MEDS ORDERED: metoprolol tartrate 1mg/ml inj IV ONE (21:15)
[2024-02-19] MEDS: INSULIN LISPRO 100 UNIT/ML INSULN.PEN MULTI-DOSE SQ SCH (21:32)
[2024-02-19] MEDS: insulin glargine (Lantus) pen - multi-dose SQ SCH (21:44)
[2024-02-19] MEDS: diphenhydrAMINE 25mg capsule PO ONE (21:46)
[2024-02-19] MEDS: metoprolol tartrate 1mg/ml inj IV ONE (21:46)
[2024-02-19 22:00] VITALS: BP 145/85; PULSE 151; TEMP 97.9
[2024-02-20] VITALS (8 sets, daily range): BP systolic 118–140; BP diastolic 66–85; PULSE 111–113; RESP 15–20; TEMP 97.4–98.4; O2SAT 97–98
[2024-02-20] MEDS: piperacillin/tazo 3.375gm/50ml 50 ML IV SCH
[2024-02-20] MEDS: vancomycin/NS 1 GM ADD-VANTAGE 250 ML IV SCH (05:17)
[2024-02-20 08:15] LABS: ALANINE AMINOTRANSFERASE 28 U/L (12-78); ALBUMIN 2.7 G/DL (3.4-5.0); ALBUMIN/GLOBULIN RATIO 0.7 (1.1-1.5); ALKALINE PHOSPHATASE 93 IU/L (46-116); ANION GAP 9 (8-16); APTT 26 SECONDS (22-32); ASPARTATE AMINO TRANSFERASE 24 U/L (10-37); BILIRUBIN,TOTAL 0.5 MG/DL (0.1-1.0); BLOOD UREA NITROGEN 20 MG/DL (7-18); BUN/CREATININE RATIO 22.2 (10.0-20.0); CALCIUM 8.2 MG/DL (8.5-10.1); CHLORIDE 102 MMOL/L (99-107); CHOL/HDL RATIO 4.3 (0.00-4.99); CHOLESTEROL 168 MG/DL (0-200); GLUCOSE 263 MG/DL (70-104); HDL CHOLESTEROL 39 MG/DL (35-60); LDL CHOLESTEROL 96 MG/DL (50-100); MAGNESIUM 2.1 MG/DL (1.5-2.4); POTASSIUM 4.1 MMOL/L (3.5-5.1); PROTHROMBIN TIME 10.3 SECONDS (9.0-12.0); SODIUM 133 MMOL/L (135-145); TOTAL CARBON DIOXIDE 21.8 MMOL/L (24-32); TOTAL PROTEIN 6.6 G/DL (6.4-8.2); TRIGLYCERIDES 244 MG/DL (20-135); eCRCL 52 ML/MIN; eGFR 65 ML/MIN
[2024-02-20 08:20] LABS: BASOPHILS % (AUTO) 0.3 % (0-1); EOSINOPHILS # (AUTO) 0.1 X10'3 (0-0.9); EOSINOPHILS % (AUTO) 0.8 % (0-6); HEMATOCRIT 34.7 % (35.0-45.0); HEMOGLOBIN 11.3 g/dl (12.0-16.0); LYMPHOCYTES # (AUTO) 1.9 X10'3 (1.1-4.8); LYMPHOCYTES % (AUTO) 14.5 % (21-51); MEAN CORPUSCULAR HEMOGLOBIN 25.5 PG (27.0-31.0); MEAN CORPUSCULAR HGB CONC 32.5 g/dL (33.0-36.5); MEAN CORPUSCULAR VOLUME 78.6 FL (78-98); MEAN PLATELET VOLUME 7.7 FL (7.4-10.4); MONOCYTES # (AUTO) 0.8 X10'3 (0-0.9); MONOCYTES % (AUTO) 6.1 % (2-12); NEUTROPHILS # (AUTO) 10.1 X10'3 (1.8-7.7); NEUTROPHILS % (AUTO) 78.3 % (42-75); PLATELET COUNT 348 X10'3 (140-440); RED BLOOD COUNT 4.41 X10'6 (4.20-5.60); RED CELL DISTRIBUTION WIDTH 16.4 % (11.5-14.5); WHITE BLOOD COUNT 12.9 X10'3 (4.5-11.0)
[2024-02-20] MEDS: losartan 50mg tablet PO SCH (08:58)
[2024-02-20] MEDS: atorvastatin 20mg tablet PO SCH (08:58)
[2024-02-20] MEDS: INSULIN LISPRO 100 UNIT/ML INSULN.PEN MULTI-DOSE SQ SCH ×2 (13:40→13:41)
[2024-02-20] MEDS: VANCOMYCIN LEVEL IV ONE (20:30)
[2024-02-21 05:00] VITALS: BP 136/82; PULSE 92; RESP 20; TEMP 97.8; O2SAT 97
[2024-02-21 07:26] LABS: BASOPHILS # (AUTO) 0.1 X10'3 (0-0.2); BASOPHILS % (AUTO) 0.7 % (0-1); EOSINOPHILS # (AUTO) 0.8 X10'3 (0-0.9); HEMATOCRIT 33.7 % (35.0-45.0); HEMOGLOBIN 10.9 g/dl (12.0-16.0); LYMPHOCYTES # (AUTO) 2.1 X10'3 (1.1-4.8); LYMPHOCYTES % (AUTO) 25.6 % (21-51); MEAN CORPUSCULAR HEMOGLOBIN 25.7 PG (27.0-31.0); MEAN CORPUSCULAR HGB CONC 32.4 g/dL (33.0-36.5); MEAN CORPUSCULAR VOLUME 79.2 FL (78-98); MEAN PLATELET VOLUME 7.5 FL (7.4-10.4); MONOCYTES # (AUTO) 0.4 X10'3 (0-0.9); MONOCYTES % (AUTO) 5.2 % (2-12); NEUTROPHILS # (AUTO) 4.8 X10'3 (1.8-7.7); NEUTROPHILS % (AUTO) 58.5 % (42-75); PLATELET COUNT 306 X10'3 (140-440); RED BLOOD COUNT 4.25 X10'6 (4.20-5.60); RED CELL DISTRIBUTION WIDTH 16.4 % (11.5-14.5); WHITE BLOOD COUNT 8.2 X10'3 (4.5-11.0)
[2024-02-21 07:32] LABS: APTT 24 SECONDS (22-32); PROTHROMBIN TIME 10.3 SECONDS (9.0-12.0)
[2024-02-21 07:34] LABS: ALANINE AMINOTRANSFERASE 22 U/L (12-78); ALBUMIN 2.8 G/DL (3.4-5.0); ALBUMIN/GLOBULIN RATIO 0.6 (1.1-1.5); ALKALINE PHOSPHATASE 92 IU/L (46-116); ANION GAP 7 (8-16); ASPARTATE AMINO TRANSFERASE 12 U/L (10-37); BILIRUBIN,TOTAL 0.4 MG/DL (0.1-1.0); BLOOD UREA NITROGEN 15 MG/DL (7-18); BUN/CREATININE RATIO 19.7 (10.0-20.0); CALCIUM 8.3 MG/DL (8.5-10.1); CHLORIDE 104 MMOL/L (99-107); CREATININE 0.76 MG/DL (0.40-0.90); GLUCOSE 270 MG/DL (70-104); MAGNESIUM 2.2 MG/DL (1.5-2.4); POTASSIUM 4.4 MMOL/L (3.5-5.1); SODIUM 135 MMOL/L (135-145); TOTAL CARBON DIOXIDE 23.9 MMOL/L (24-32); TOTAL PROTEIN 7.2 G/DL (6.4-8.2); eCRCL 61 ML/MIN; eGFR 80 ML/MIN
[2024-02-21 08:30] VITALS: RESP 18; O2SAT 97
[2024-02-21 10:00] VITALS: BP 133/79; PULSE 93; RESP 16; TEMP 98.7; O2SAT 98
[2024-02-21] MEDS ORDERED: LINE600T14 PO (11:31)
[2024-02-21] MEDS ORDERED: ATOR20TA66 PO (12:47)
[2024-02-21] MEDS ORDERED: LACT1CAP26 PO (12:47)
== END 2024-02-21 13:30 | disposition home or self-care (01) | DRG 383 ==
LOC: ER 12:02 → ED HOLD 18:38 → EDBEDREQ 19:46 → ORTHO 4S 20:04
PROVIDERS: ADMIT Family Medicine; ATTEND Family Medicine
DX: L03.115 Cellulitis of right lower limb (principal); E11.42 Type 2 diabetes mellitus with diabetic polyneuropathy; E11.621 Type 2 diabetes mellitus with foot ulcer; L97.529 Non-pressure chronic ulcer of other part of left foot with unspecified severity; G89.29 Other chronic pain; F41.9 Anxiety disorder, unspecified; I10 Essential (primary) hypertension; L03.116 Cellulitis of left lower limb; Z79.4 Long term (current) use of insulin; Z79.899 Other long term (current) drug therapy; Z88.5 Allergy status to narcotic agent
CPT/HCPCS: 36415; 71045; 73700; 80053; 80061; 80202; 80305; 81001; 82948; 83036; 83605; 83735; 84100; 84145; 85025; 85610; 85651; 85730; 86140; 87040; 87070; 87077; 87081; 87186; 93922; 93925; 93970; 96365; 99291; A6250; A6446; A6449; G0378; J0696; J1650; J1815; J2543; J3370; J3490; J7030; J7040; Q0163

== ENCOUNTER 2024-04-26 13:29 | Inpatient (IN) | payer MEDICAID ==
[~2024-04-26] VITALS: Ht 152.4 cm; Wt 119.0 kg
[~2024-04-26 13:29] MED LIST changes: +LACT1CAP26 PO; +LINE600T14 PO
[2024-04-26] MEDS: acetaminophen 325mg tablet PO STA (13:48)
[2024-04-26 14:20] LABS: BASOPHILS # (AUTO) 0.1 X10'3 (0-0.2); BASOPHILS % (AUTO) 0.9 % (0-1); EOSINOPHILS % (AUTO) 0 % (0-6); HEMATOCRIT 35.5 % (35.0-45.0); HEMOGLOBIN 11.8 g/dl (12.0-16.0); LYMPHOCYTES # (AUTO) 1.1 X10'3 (1.1-4.8); LYMPHOCYTES % (AUTO) 13.1 % (21-51); MEAN CORPUSCULAR HEMOGLOBIN 25.7 PG (27.0-31.0); MEAN CORPUSCULAR HGB CONC 33.2 g/dL (33.0-36.5); MEAN CORPUSCULAR VOLUME 77.5 FL (78-98); MEAN PLATELET VOLUME 8.2 FL (7.4-10.4); MONOCYTES # (AUTO) 0.5 X10'3 (0-0.9); MONOCYTES % (AUTO) 6.3 % (2-12); NEUTROPHILS # (AUTO) 6.7 X10'3 (1.8-7.7); NEUTROPHILS % (AUTO) 79.7 % (42-75); PLATELET COUNT 189 X10'3 (140-440); RED BLOOD COUNT 4.58 X10'6 (4.20-5.60); RED CELL DISTRIBUTION WIDTH 17.5 % (11.5-14.5); WHITE BLOOD COUNT 8.4 X10'3 (4.5-11.0)
[2024-04-26 14:48] LABS: BILIRUBIN,URINE SMALL (Neg); CLARITY,URINE CLOUDY (Clear); GLUCOSE, URINE 100 mg/dl (Neg); KETONES,URINE TRACE mg/dl (Neg); LEUKOCYTE ESTERASE ,URINE MODERATE (Neg); NITRITES, URINE POSITIVE (Neg); OCCULT BLOOD,URINE MODERATE (Neg); PROTEIN,URINE 100 mg/dl (Neg); URINE HCG NEGATIVE (NEG)
[2024-04-26 14:49] LABS: ALANINE AMINOTRANSFERASE 36 U/L (12-78); ALBUMIN 2.5 G/DL (3.4-5.0); ALBUMIN/GLOBULIN RATIO 0.5 (1.1-1.5); ALKALINE PHOSPHATASE 157 IU/L (46-116); ANION GAP 11 (8-16); ASPARTATE AMINO TRANSFERASE 35 U/L (10-37); BILIRUBIN,TOTAL 0.8 MG/DL (0.1-1.0); BLOOD UREA NITROGEN 18 MG/DL (7-18); BUN/CREATININE RATIO 15.9 (10.0-20.0); CALCIUM 8.8 MG/DL (8.5-10.1); CHLORIDE 98 MMOL/L (99-107); CREATININE 1.13 MG/DL (0.40-0.90); GLUCOSE 169 MG/DL (70-104); LIPASE 14 U/L (16-77); POTASSIUM 3.5 MMOL/L (3.5-5.1); SODIUM 131 MMOL/L (135-145); TOTAL CARBON DIOXIDE 22.1 MMOL/L (24-32); TOTAL PROTEIN 7.7 G/DL (6.4-8.2); eCRCL 41 ML/MIN; eGFR 50 ML/MIN
[2024-04-26 15:00] LABS: COLOR,URINE YELLOW (Yellow); UA COLLECTION TYPE CLN CATCH MIDSTREAM
[2024-04-26 15:01] LABS: BACTERIA,URINE 2+ /HPF (Neg); SQUAMOUS EPITHELIAL CELL,UR MODERATE /LPF (FEW)
[2024-04-26] MEDS: CefTRIAXone 2gm/D5W 50ml BAG 50 ML IV ONE (16:31)
[2024-04-26] MEDS: normal saline 1000ML IV soln IVB ONE (16:31)
[2024-04-26] MEDS ORDERED: magnesium hydroxide 30ml (MOM) UD suspension PO PRN (18:25)
[2024-04-26] MEDS ORDERED: potassium Cl 40MEQ/1/2NS 520ml 520 ML IV PRN (18:25)
[2024-04-26] MEDS ORDERED: magnesium Cl slow-release 64mg tablet PO PRN (18:25)
[2024-04-26] MEDS ORDERED: magnesium sulf-water 2g/50mL 50 ML IV PRN (18:25)
[2024-04-26] MEDS ORDERED: mag hydrox/Alum hydrox/simeth 30ml oral suspension PO PRN (18:25)
[2024-04-26] MEDS ORDERED: ondansetron/PF 4mg/2ml inj IV PRN (18:25)
[2024-04-26] MEDS ORDERED: potassium Cl 20 mEq SR tablet PO PRN (18:25)
[2024-04-26] MEDS ORDERED: acetaminophen 325mg tablet PO PRN (18:25)
[2024-04-26] MEDS ORDERED: magnesium sulf-water 4G/100mL 100 ML IV PRN (18:25)
[2024-04-26] MEDS ORDERED: acetaminophen 1,000mg/100ml IV 100 ML IV PRN (18:35)
[2024-04-26] MEDS ORDERED: dextrose 50%-water 50ml dispensing syringe IV PRN ×2 (18:50)
[2024-04-26] MEDS ORDERED: glucagon, human recombinant 1mg kit SUBCUT PRN (18:50)
[2024-04-26] MEDS ORDERED: DEXTROSE 15 GM of carb/4 tabs (each vial/BOTTLE has 4 tablets) PO PRN ×2 (18:50)
[2024-04-26] MEDS: normal saline 1000ml 1,000 ML IV SCH (19:10)
[2024-04-26] MEDS: K and/or MAG REPLACEMENT MC SCH (19:13)
[2024-04-26 19:23] LABS: HEMOGLOBIN A1C 8.8 % (4.5-6.2)
[2024-04-26] MEDS: insulin glargine (Lantus) pen - multi-dose SQ SCH (20:34)
[2024-04-26] MEDS: heparin, porcine 5000 units/ml vial SQ SCH (20:36)
[2024-04-26] MEDS: INSULIN LISPRO 100 UNIT/ML INSULN.PEN MULTI-DOSE SQ SCH (21:40)
[2024-04-26 22:00] VITALS: BP 130/77; PULSE 130; RESP 15; TEMP 97.9; O2SAT 96
[2024-04-27] MEDS: piperacillin/tazo 3.375gm/50ml 50 ML IV SCH (00:23)
[2024-04-27 04:42] LABS: BASOPHILS % (AUTO) 0.6 % (0-1); EOSINOPHILS % (AUTO) 0 % (0-6); HEMATOCRIT 34.1 % (35.0-45.0); HEMOGLOBIN 11.1 g/dl (12.0-16.0); LYMPHOCYTES # (AUTO) 1.3 X10'3 (1.1-4.8); LYMPHOCYTES % (AUTO) 19.1 % (21-51); MEAN CORPUSCULAR HEMOGLOBIN 25.4 PG (27.0-31.0); MEAN CORPUSCULAR HGB CONC 32.4 g/dL (33.0-36.5); MEAN CORPUSCULAR VOLUME 78.4 FL (78-98); MEAN PLATELET VOLUME 8.4 FL (7.4-10.4); MONOCYTES # (AUTO) 0.5 X10'3 (0-0.9); MONOCYTES % (AUTO) 7.9 % (2-12); NEUTROPHILS # (AUTO) 4.9 X10'3 (1.8-7.7); NEUTROPHILS % (AUTO) 72.4 % (42-75); PLATELET COUNT 161 X10'3 (140-440); RED BLOOD COUNT 4.35 X10'6 (4.20-5.60); RED CELL DISTRIBUTION WIDTH 17.4 % (11.5-14.5); WHITE BLOOD COUNT 6.8 X10'3 (4.5-11.0)
[2024-04-27 05:02] LABS: ALANINE AMINOTRANSFERASE 36 U/L (12-78); ALBUMIN 2.1 G/DL (3.4-5.0); ALBUMIN/GLOBULIN RATIO 0.4 (1.1-1.5); ALKALINE PHOSPHATASE 152 IU/L (46-116); ANION GAP 9 (8-16); ASPARTATE AMINO TRANSFERASE 40 U/L (10-37); BILIRUBIN,TOTAL 0.6 MG/DL (0.1-1.0); BLOOD UREA NITROGEN 18 MG/DL (7-18); BUN/CREATININE RATIO 16.8 (10.0-20.0); CHLORIDE 102 MMOL/L (99-107); CREATININE 1.07 MG/DL (0.40-0.90); GLUCOSE 155 MG/DL (70-104); MAGNESIUM 2.2 MG/DL (1.5-2.4); POTASSIUM 3.5 MMOL/L (3.5-5.1); SODIUM 133 MMOL/L (135-145); TOTAL CARBON DIOXIDE 21.7 MMOL/L (24-32); TOTAL PROTEIN 6.8 G/DL (6.4-8.2); eCRCL 44 ML/MIN; eGFR 54 ML/MIN
[2024-04-27 06:56] VITALS: BP 120/74; PULSE 100; RESP 16; TEMP 98.1; O2SAT 96
[2024-04-27 08:00] VITALS: RESP 18; O2SAT 96
[2024-04-27] MEDS ORDERED: CefTRIAXone/D5W-Rocephin 1gm 50 ML IV SCH (08:00)
[2024-04-27 10:36] LABS: CHOL/HDL RATIO 8.3 (0.00-4.99); CHOLESTEROL 133 MG/DL (0-200); HDL CHOLESTEROL 16 MG/DL (35-60); LDL CHOLESTEROL 62 MG/DL (50-100); TRIGLYCERIDES 275 MG/DL (20-135)
[2024-04-27 11:14] LABS: C DIFF ANTIGEN NEGATIVE (NEGATIVE); C DIFF SPECIMEN=DIARRHEA? ACCEPTABLE; C DIFFICILE TOXINS A&B NEGATIVE (Neg)
[2024-04-27] MEDS: lactobacillus rhamnosus 10,000 MMU CELLS/CAPSULE PO SCH (12:56)
[2024-04-27 13:21] VITALS: RESP 18; O2SAT 96
[2024-04-27 18:00] VITALS: BP 157/96; PULSE 119; RESP 20; TEMP 98.7; O2SAT 99
[2024-04-27 22:00] VITALS: BP 139/71; PULSE 110; RESP 16; TEMP 98.9; O2SAT 96
[2024-04-28 06:42] VITALS: BP 127/71; PULSE 65; RESP 17; TEMP 97.5; O2SAT 98
[2024-04-28 06:45] LABS: BASOPHILS % (AUTO) 0.5 % (0-1); EOSINOPHILS # (AUTO) 0.1 X10'3 (0-0.9); EOSINOPHILS % (AUTO) 1.2 % (0-6); HEMATOCRIT 32.8 % (35.0-45.0); HEMOGLOBIN 10.7 g/dl (12.0-16.0); LYMPHOCYTES # (AUTO) 1.7 X10'3 (1.1-4.8); LYMPHOCYTES % (AUTO) 26.4 % (21-51); MEAN CORPUSCULAR HEMOGLOBIN 25.4 PG (27.0-31.0); MEAN CORPUSCULAR HGB CONC 32.7 g/dL (33.0-36.5); MEAN CORPUSCULAR VOLUME 77.8 FL (78-98); MEAN PLATELET VOLUME 9.1 FL (7.4-10.4); MONOCYTES # (AUTO) 0.6 X10'3 (0-0.9); MONOCYTES % (AUTO) 9.4 % (2-12); NEUTROPHILS % (AUTO) 62.5 % (42-75); PLATELET COUNT 154 X10'3 (140-440); RED BLOOD COUNT 4.22 X10'6 (4.20-5.60); RED CELL DISTRIBUTION WIDTH 17.7 % (11.5-14.5); WHITE BLOOD COUNT 6.4 X10'3 (4.5-11.0)
[2024-04-28 06:59] LABS: ALANINE AMINOTRANSFERASE 58 U/L (12-78); ALBUMIN/GLOBULIN RATIO 0.4 (1.1-1.5); ALKALINE PHOSPHATASE 209 IU/L (46-116); ANION GAP 10 (8-16); ASPARTATE AMINO TRANSFERASE 56 U/L (10-37); BILIRUBIN,TOTAL 0.4 MG/DL (0.1-1.0); BLOOD UREA NITROGEN 14 MG/DL (7-18); BUN/CREATININE RATIO 13.9 (10.0-20.0); CALCIUM 8.1 MG/DL (8.5-10.1); CHLORIDE 101 MMOL/L (99-107); CREATININE 1.01 MG/DL (0.40-0.90); GLUCOSE 158 MG/DL (70-104); MAGNESIUM 2.2 MG/DL (1.5-2.4); POTASSIUM 3.3 MMOL/L (3.5-5.1); SODIUM 132 MMOL/L (135-145); TOTAL CARBON DIOXIDE 20.9 MMOL/L (24-32); TOTAL PROTEIN 6.9 G/DL (6.4-8.2); eCRCL 46 ML/MIN; eGFR 57 ML/MIN
[2024-04-28] MEDS: insulin Lispro (HumaLOG) vial - multi-dose SQ SCH (07:34)
[2024-04-28 08:00] VITALS: RESP 18; O2SAT 96
[2024-04-28 10:00] VITALS: BP 140/80; PULSE 100; RESP 16; TEMP 98.6; O2SAT 97
[2024-04-28 18:00] VITALS: BP 126/81; PULSE 103; RESP 16; TEMP 99.1; O2SAT 98
[2024-04-28] MEDS: potassium Cl 20 mEq SR tablet PO PRN (19:05)
[2024-04-28] MEDS ORDERED: INSULIN LISPRO 100 UNIT/ML INSULN.PEN MULTI-DOSE SQ SCH (21:50)
[2024-04-28] MEDS: INSULIN LISPRO 100 UNIT/ML INSULN.PEN MULTI-DOSE SQ SCH (21:54)
[2024-04-28 22:00] VITALS: BP 137/86; PULSE 89; RESP 16; TEMP 98.1; O2SAT 96
[2024-04-29 06:00] VITALS: BP 136/80; PULSE 74; RESP 19; TEMP 97.8; O2SAT 97
[2024-04-29 06:04] LABS: ALANINE AMINOTRANSFERASE 92 U/L (12-78); ALBUMIN/GLOBULIN RATIO 0.4 (1.1-1.5); ALKALINE PHOSPHATASE 293 IU/L (46-116); ANION GAP 10 (8-16); ASPARTATE AMINO TRANSFERASE 76 U/L (10-37); BILIRUBIN,TOTAL 0.3 MG/DL (0.1-1.0); BLOOD UREA NITROGEN 14 MG/DL (7-18); BUN/CREATININE RATIO 15.7 (10.0-20.0); CALCIUM 8.1 MG/DL (8.5-10.1); CHLORIDE 105 MMOL/L (99-107); CREATININE 0.89 MG/DL (0.40-0.90); GLUCOSE 126 MG/DL (70-104); MAGNESIUM 2.2 MG/DL (1.5-2.4); POTASSIUM 3.7 MMOL/L (3.5-5.1); SODIUM 134 MMOL/L (135-145); TOTAL CARBON DIOXIDE 18.9 MMOL/L (24-32); TOTAL PROTEIN 6.9 G/DL (6.4-8.2); eCRCL 53 ML/MIN; eGFR 66 ML/MIN
[2024-04-29 06:28] LABS: BASOPHILS % (AUTO) 0.5 % (0-1); EOSINOPHILS # (AUTO) 0.2 X10'3 (0-0.9); EOSINOPHILS % (AUTO) 3.1 % (0-6); HEMATOCRIT 32.5 % (35.0-45.0); HEMOGLOBIN 10.6 g/dl (12.0-16.0); LYMPHOCYTES % (AUTO) 26.1 % (21-51); MEAN CORPUSCULAR HEMOGLOBIN 25.4 PG (27.0-31.0); MEAN CORPUSCULAR HGB CONC 32.5 g/dL (33.0-36.5); MEAN CORPUSCULAR VOLUME 78.4 FL (78-98); MEAN PLATELET VOLUME 9.4 FL (7.4-10.4); MONOCYTES # (AUTO) 0.7 X10'3 (0-0.9); MONOCYTES % (AUTO) 8.7 % (2-12); NEUTROPHILS # (AUTO) 4.7 X10'3 (1.8-7.7); NEUTROPHILS % (AUTO) 61.6 % (42-75); PLATELET COUNT 192 X10'3 (140-440); RED BLOOD COUNT 4.15 X10'6 (4.20-5.60); RED CELL DISTRIBUTION WIDTH 17.8 % (11.5-14.5); WHITE BLOOD COUNT 7.6 X10'3 (4.5-11.0)
[2024-04-29 08:00] VITALS: RESP 19; O2SAT 97
[2024-04-29] MEDS: CefTRIAXone/D5W-Rocephin 1gm 50 ML IV SCH (08:27)
[2024-04-29 10:00] VITALS: BP 143/69; PULSE 100; RESP 17; TEMP 98.3; O2SAT 97
[2024-04-29] MEDS ORDERED: CEFD300C3 PO (11:58)
[2024-04-29] MEDS ORDERED: LACT1CAP26 PO (11:58)
== END 2024-04-29 15:36 | disposition home or self-care (01) | DRG 720 ==
LOC: ER 13:30 → EDBEDREQ 19:59 → ED HOLD 20:50 → UNDOADMIN 20:50 → ED HOLD 20:51 → ORTHO 4S 21:10 → ED HOLD 21:10
PROVIDERS: ADMIT Family Medicine; ATTEND Family Medicine
DX: A41.51 Sepsis due to Escherichia coli [E. coli] (principal); N17.9 Acute kidney failure, unspecified; E87.1 Hypo-osmolality and hyponatremia; L03.311 Cellulitis of abdominal wall; K80.20 Calculus of gallbladder without cholecystitis without obstruction; R59.0 Localized enlarged lymph nodes; M79.3 Panniculitis, unspecified; R74.8 Abnormal levels of other serum enzymes; N13.6 Pyonephrosis; E11.42 Type 2 diabetes mellitus with diabetic polyneuropathy; Z68.43 Body mass index [BMI] 50.0-59.9, adult; E78.5 Hyperlipidemia, unspecified; F41.9 Anxiety disorder, unspecified; G89.29 Other chronic pain; E66.01 Morbid (severe) obesity due to excess calories; I10 Essential (primary) hypertension; E87.6 Hypokalemia; R19.7 Diarrhea, unspecified; Z87.440 Personal history of urinary (tract) infections; Z88.5 Allergy status to narcotic agent; Z79.899 Other long term (current) drug therapy; Z79.4 Long term (current) use of insulin; Z80.0 Family history of malignant neoplasm of digestive organs; Z83.3 Family history of diabetes mellitus
CPT/HCPCS: 36415; 71045; 74176; 80053; 80061; 81001; 81025; 82948; 83036; 83605; 83690; 83735; 84145; 85025; 87040; 87045; 87046; 87077; 87081; 87088; 87186; 87324; 87449; 93005; 96365; 99285; G0378; J0696; J1644; J1815; J2543; J7030; J7040

== ENCOUNTER 2025-05-25 12:43 | Outpatient (CLI) | payer MEDICAID ==
[~2025-05-25 12:43] MED LIST changes: -ATOR20TA66 PO; -AYGESTIN PO; +CEFD300C3 PO; -LINE600T14 PO; -LOSA50TA64 PO; -PANT40TA54 PO
--- NOTE | 2025-05-25 14:33 | VASCULAR REPORT ---
Technique: Real-time ultrasound imaging, with color Doppler and compression of the bilateral common femoral vein, femoral vein, greater saphenous vein, and popliteal vein. Indication: Swelling Comparison: VASC VL VENOUS on DOS: 02/20/24 Findings: There is normal compressibility and flow augmentation in all of the imaged deep veins. There are no f illing defects. Bilateral lower extremity soft tissue edema. Left inguinal region lymph node measuring 4.1 x 1.8 cm. Impression: No evidence of DVT in the bilateral lower extremities Left inguinal lymphadenopathy/abnormal appearing lymph node
== END 2025-05-25 23:59 | disposition home or self-care (01) ==
LOC: VAS 12:43
PROVIDERS: ATTEND Nurse Practitioner
DX: M79.89 Other specified soft tissue disorders (principal)
CPT/HCPCS: 93970

== ENCOUNTER 2025-06-11 15:31 | Emergency (ER) | payer MEDICAID ==
[~2025-06-11] VITALS: Ht 149.9 cm; Wt 126.8 kg
[2025-06-11 17:53] LABS: MEAN PLATELET VOLUME 7.6 FL (7.4-10.4); RED CELL DISTRIBUTION WIDTH 15.8 % (11.5-14.5)
[2025-06-11 18:13] LABS: CREATININE 0.70 MG/DL (0.40-0.90); TOTAL CARBON DIOXIDE 23.6 MMOL/L (24-32); eCRCL 63 ML/MIN; eGFR 87 ML/MIN
[2025-06-11] MEDS ORDERED: FURO-149 PO (21:16)
--- NOTE | 2025-06-11 21:17 | Physician Documentation ---
History of Present Illness ~ Chief Complaint: Extremity Swelling Stated Complaint: FALL/LEG TIGHTNESS Time Seen by MD: 20:32 Primary Medical Doctor: dr keane @ [facility] HPI Patient is seen today with complaints of swelling of her bilateral lower extremities in his chronic in nature. Patient states the swelling became very severe the last few days and she states she sits in a chair most of the day with her feet on the ground and the last couple of days she has actually been able to elevate her feet which has reduced the swelling significantly bilaterally. Patient is concerned for possible cellulitis. Patient denies any warmth or fevers or chills and has no other concern or complaint at this time. Tetanus witin 5 years: No Medication Reconciliation Allergies: Coded Allergies: codeine (Verified Allergy, Mild, NAUSEA, 06/11/25) Uncoded Allergies: ANESTHESIA (Adverse Reaction, Unknown, SEVERE VOMITING, 05/28/14) Scheduled Cefdinir (Cefdinir), 1 CAP PO Q12H Furosemide (Lasix), 1 TAB PO DAILY Insulin Aspart (Novolog), 10-70 UNIT SQ AC, (Reported) Insulin Glargine,Hum.rec.anlog* (Lantus*), 60 UNITS SQ BID, (Reported) Lactobacillus Rhamnosus (Culturelle), 10,000 MMU PO DAILY Past Medical History Past Medical History: Peripheral Neuropathy, Hypertension, UTI, Diabetes, Chronic Pain, MRSA Abscess, Anxiety Past Surgical History: noncontributory Patient History: FH: pancreatic cancer GRANDFATHER OR GRANDMOTHER, Onset:80 FH: type 1 diabetes FATHER (Diabetes) Alcohol Use: None Drug Use: none Lives with: Alone Lives In: Other Occupation: unemployed Review of Systems Constitutional: Denies: chills, fever, weakness Eyes: Denies: pain, blurred vision ENT: Denies: ear pain, nose pain, throat pain, mouth pain Respiratory: Denies: cough, shortness of breath Cardiovascular: Denies: chest pain, palpitations Gastrointestinal: Denies: abdominal pain, nausea, vomiting Genitourinary: Denies: burning, dysuria Female Genitalia: Denies: vaginal discharge, pelvic pain Neurological: Denies: headache, dizziness Musculoskeletal: Denies: pain, swelling Integumentary: Denies: rash, lesions Allergic/Immunologic: Denies: hives, itching Hematologic/Lymphatic: Denies: no symptoms reported Psychiatric: Denies: depression, anxiety Physical Exam Vital Signs: Temperature: 98.7, Source: Temporal, Heart Rate: 103, Respiratory Rate: 16, BP: 164/94, Pulse Oximetry: 99, Weight: 126.820 Oxygen Flow Rate: 0 Physical Exam General: Awake and Alert, no acute distress. HEENT: Conjunctiva pink, Sclera clear, Mucus Membranes moist. Neck: Supple without masses and tenderness. Resp: Unlabored. Lungs clear to auscultation bilaterally. Heart: Regular Rate and rhythm, normal S1 and S2 without murmur, rub or gallop. Abdomen: Soft and non tender no organomegaly Extremities: Patient on exam has chronic skin changes from chronic edema of the bilateral lower extremities. Patient has 2+ pitting edema of the bilateral lower extremities. I do not appreciate any erythema or warmth of the lower extremities suggestive of any type of infection. Skin: Warm and Dry. Progress Results/Orders Results/Orders Vital Signs 06/11/25 06/11/25 06/11/25 15:52 18:50 21:31 Temp 97.8 98.7 98.7 Pulse 119 103 99 Resp 18 16 16 B/P (MAP) 193/99 164/94 (117) 160/90 Pulse Ox 98 99 99 O2 Flow Rate 0 Laboratory Tests Test 06/11/25 17:29 White Blood Count 11.6 H Red Blood Count 4.95 Hemoglobin 12.9 Hematocrit 38.7 Mean Corpuscular Volume 78.3 Mean Corpuscular Hemoglobin 26.1 L Mean Corpuscular Hemoglobin Concent 33.3 Red Cell Distribution Width 15.8 H Platelet Count 385 Mean Platelet Volume 7.6 Neutrophils (%) (Auto) 64.8 Lymphocytes (%) (Auto) 25.2 Monocytes (%) (Auto) 4.6 Eosinophils (%) (Auto) 4.3 Basophils (%) (Auto) 1.1 H Neutrophils # (Auto) 7.5 Lymphocytes # (Auto) 2.9 Monocytes # (Auto) 0.5 Eosinophils # (Auto) 0.5 Basophils # (Auto) 0.1 CBC Comment Sodium Level 135 Potassium Level 4.0 Chloride Level 101 Carbon Dioxide Level 23.6 L Anion Gap 10 Blood Urea Nitrogen 16 Creatinine 0.70 Estimated GFR/1.73 m2 87 BUN/Creatinine Ratio 22.9 H Glucose Level 187 H Lactic Acid Level 0.7 Calcium Level 9.2 Albumin 3.3 L Procalcitonin < 0.05 Chemistry Comments Microbiology Date/Time Source Procedure Growth Status 06/11/25 17:34 Blood Arm Left Blood Culture - Preliminary NEGATIVE (LESS THAN 24 HOURS) Resulted Medical Decision Making Findings Patient is seen today with complaints of swelling of her bilateral lower extremities in his chronic in nature. Patient states the swelling became very severe the last few days and she states she sits in a chair most of the day with her feet on the ground and the last couple of days she has actually been able to elevate her feet which has reduced the swelling significantly bilaterally. Patient is concerned for possible cellulitis. Patient denies any warmth or fevers or chills and has no other concern or complaint at this time. Patient was given prescription for potassium and Lasix and will keep feet elevated and will return to ED with any worsening, concerning or changing symptoms or sign of cellulitis or infection. Patient voiced understanding. Patient will follow up with primary care provider to manage chronic leg edema and get referral to telemarketing supervisor for eval for vein venous disease. Venous insufficiency. Departure Disposition: HOME / SELF CARE / HOMELESS Impression: Primary Impression: Edema of lower extremity Condition: Stable Discharge Instructions: Edema, [id number] Additional Instructions: Patient was given prescription for potassium and Lasix and will keep feet elevated and will return to ED with any worsening, concerning or changing symptoms or sign of cellulitis or infection. Patient voiced understanding. Patient will follow up with primary care provider to manage chronic leg edema and get referral to telemarketing supervisor for eval for vein venous disease. Venous insufficiency. Referrals: NO PRIMARY CARE PROVIDER (PCP) Prescriptions Potassium Chloride (Klor-Con 8) 8 Meq Tablet.er 1 TAB PO DAILY for 30 Days, #30 TAB 0 Refills Prov: SERGIO HERMAN 06/11/25 Furosemide (LASIX) 40 Mg Tablet 1 TAB PO DAILY for 15 Days, #15 TAB 0 Refills Prov: SERGIO HERMAN 06/11/25 Signature Scribe Signature: No scribe Attestation: No scribe SERGIO HERMAN Jun 11, 2025 21:17
[2025-06-11 21:31] VITALS: BP 160/90; PULSE 99; RESP 16; TEMP 98.7; O2SAT 99
[2025-06-11] MEDS ORDERED: POTA8TAB69 PO (21:36)
== END 2025-06-11 21:43 | disposition home or self-care (01) ==
LOC: ER 15:32
DX: R60.0 Localized edema (principal); E11.42 Type 2 diabetes mellitus with diabetic polyneuropathy; I10 Essential (primary) hypertension; F41.9 Anxiety disorder, unspecified; G89.29 Other chronic pain; Z88.5 Allergy status to narcotic agent; Z79.899 Other long term (current) drug therapy; Z79.4 Long term (current) use of insulin; Z56.0 Unemployment, unspecified; Z60.2 Problems related to living alone
CPT/HCPCS: 36415; 80048; 83605; 84145; 85025; 87040; 99283